=== PATIENT | female | born 1940 | race Caucasian/White ===

== ENCOUNTER 2016-09-09 17:30 | Observation (INO) ==
[2016-09-09] MEDS ORDERED: *HR* OxyCODONE/APAP 5/325 TABLET PO STA (19:19)
--- NOTE | 2016-09-09 19:22 | Emergency Department Note ---
Disposition Clinical Impression: Compression fx, thoracic spine Qualifiers: Encounter type: initial encounter Fracture type: closed Qualified Code(s): S22.000A - Wedge compression fracture of unspecified thoracic vertebra, initial encounter for closed fracture Disposition: Admitted As Inpatient Condition: Good Back Pain HPI - General Chief Complaint: ED Weakness Stated Complaint: back pain, weakness Time Seen by Provider: 09/09/16 19:03 Source: family Mode of arrival: ambulatory Limitations: no limitations Nursing Notes Reviewed: Yes Vital Signs Reviewed: Yes - History of Present Illness HPI Narrative: Patient here for evaluation of back pain and weakness status post fall on Tuesday. Patient was recently admitted for COPD exacerbation. Patient fell secondary to her losing her balance but states she did not hit her head and she did not pass out. Patient states she falls a lot but is unsure why. She states that she fell onto her back and has been having constant back pain that has not gotten any better since the incident. This is decreased her mobility and not allowed her to take care of herself as she normally would. Patient does have significant pain to the mid and upper thoracic region. Patient states that she feels generally weak and has fatigue. She does not have saddle anesthesia, paresthesias, urinary incontinence. Patient also has some tenderness to the lateral rib cage. Due to the patient being uncomfortable having generalized tenderness with a high likelihood of possible thoracic spine injury, a oakes CT scan will be performed. - Related Data Home Medications Medication Instructions Recorded Confirmed Aspirin 81 mg PO DAILY 08/24/16 08/24/16 Atorvastatin [Lipitor] 40 mg PO HS 08/24/16 08/24/16 Budesonide/Formoterol 160/4.5 2 puff IH BIDR 08/24/16 08/24/16 [Symbicort 160/4.5] Cholecalciferol (Vitamin D3) 1,000 unit PO DAILY 08/24/16 08/24/16 [Vitamin D] Doxepin HCl 10 mg PO HS PRN 08/24/16 08/24/16 Ferrous Sulfate [Iron] 325 mg PO DAILY 08/24/16 08/24/16 Fluticasone Propionate Nasal 1 - 2 spray NS DAILY 08/24/16 08/24/16 [Flonase] Glimepiride [Amaryl] 4 mg PO BID 08/24/16 08/24/16 Loratadine [Claritin] 10 mg PO DAILY 08/24/16 08/24/16 Losartan/HCTZ [Hyzaar 50-12.5 1 each PO DAILY 08/24/16 08/24/16 Tablet] Metformin HCl [Metformin HCl ER] 500 mg PO BID 08/24/16 08/24/16 Oxybutynin [Ditropan] 5 mg PO BID 08/24/16 08/24/16 Pantoprazole Sodium [Protonix] 40 mg PO BID 08/24/16 08/24/16 Sennosides [Senna] 8.6 - 17.2 mg PO HS PRN 08/24/16 08/24/16 Bimatoprost [Lumigan] 1 drop OP DAILY 09/09/16 09/09/16 Multivitamin [Multi-Day Vitamins] 1 each PO DAILY 09/09/16 09/09/16 Allergies Allergy/AdvReac Type Severity Reaction Status Date / Time clopidogrel [From Plavix] Allergy Rash Verified 09/09/16 17:43 codeine Allergy Rash Verified 09/09/16 17:43 metoclopramide [From Reglan] Allergy Rash Verified 09/09/16 17:43 Sulfa (Sulfonamide Allergy Rash Verified 09/09/16 17:43 Antibiotics) acetaminophen [From [place]] AdvReac Confusion Verified 09/09/16 17:43 hydrocodone [From [place]] AdvReac Confusion Verified 09/09/16 17:43 lisinopril AdvReac Cough Verified 09/09/16 17:43 IVP DYE Allergy Rash Uncoded 08/24/16 12:42 Review of Systems: CONSTITUTIONAL: Weakness and fatigue No weight loss, fever, chills. HEENT: Eyes: No visual changes. Ears, Nose, Throat: No hearing loss, difficulty talking or unable to swallow. SKIN: No rash or itching. CARDIOVASCULAR: No chest pain, chest pressure or chest discomfort. No palpitations or edema. RESPIRATORY: No shortness of breath, cough or sputum. GASTROINTESTINAL: No anorexia, nausea, vomiting or diarrhea. No abdominal pain or blood. GENITOURINARY: No burning on urination or hematuria. NEUROLOGICAL: No headache, dizziness, syncope, paralysis, ataxia, numbness or tingling in the extremities. No change in bowel or bladder control. MUSCULOSKELETAL: Back pain Past Medical History - Past Medical History Medical history: Reports: COPD, diabetes, GERD, hyperlipidemia, hypertension Surgical history: Reports: cholecystectomy Psychiatric history: Reports: no psych history - Social History Smoking Status: Never smoker Drug use: Reports: none Physical Exam General appearance: NAD, conversant Eyes: anicteric sclerae, moist conjunctivae; PERRL HENT: Atraumatic; oropharynx clear with moist mucous membranes and no mucosal ulcerations Neck: Normal inspection; Trachea midline; FROM, supple Lungs: CTA, with normal respiratory effort and no intercostal retractions CV: RRR, no MRGs Abdomen: Soft, non-tender; no rebound or gaurding Extremities: No peripheral edema or extremity lymphadenopathy Skin: Normal temperature; no rash, ulcers or lesions Psych: Appropriate mood and affect Neuro: alert and oriented to person, place and time . Musculoskeletal: Tenderness throughout the spine but worse in the lower and mid thoracic region. Patient complains of generalized weakness including weakness of her legs with mildly decreased strength in the lower extremity but still provides 4+/5 resistence. No saddle anesthesia. - General General appearance: alert, in no apparent distress Course - Reevaluation(s) Reevaluation #1: Discomfort the workup and x-ray findings the patient. Patient feels if she would be unable to take care of herself secondary to the pain and decreased mobility. Will discuss with orthopedic spine in regards to further management. Pt with a urine will be cultured prior to treatment. - Consultations Consultation #1: Discussed with Dr. Alonso. If patient is unable to care for herself at home he recommends admission to the hospitalist service where she can be further evaluated with an MRI of the thoracic spine and he can be consult in regards to fracture management. Consultation #2: Discussed with Dr. Aguila. Patient accepted for admission. Vital Signs Temperature 97.7 F 09/09/16 17:40 Pulse Rate 90 09/09/16 17:40 Respiratory Rate 16 09/09/16 17:40 Blood Pressure 138/82 09/09/16 17:40 O2 Sat by Pulse Oximetry 98 09/09/16 17:40 Temperature 97.7 F 09/09/16 17:40 Pulse Rate 80 09/09/16 22:00 Respiratory Rate 18 09/09/16 22:00 Blood Pressure 155/77 09/09/16 22:00 O2 Sat by Pulse Oximetry 97 09/09/16 22:00 Oxygen Delivery Oxygen Delivery Room Air Back Pain/Injury - Lab Data Result diagrams: 09/09/16 20:08 09/09/16 20:08 Lab Results 09/09/16 09/09/16 09/09/16 Range/Units 19:47 19:57 20:08 WBC 14.1 H (4.3-11.1) K/mcL RBC 5.32 H (3.82-4.97) M/mcL Hgb 16.8 H (11.5-15.4) g/dL Hct 48.7 H (35.3-44.9) % MCV 91.5 (83.0-100.0) fL MCH 31.6 (28.0-33.3) pg MCHC 34.5 (31.6-35.5) g/dL RDW 12.3 (11.5-14.5) % Plt Count 335 (140-400) K/mcL MPV 9.3 L (9.4-12.4) fL Immature Gran % 1.6 (0-4) % Seg Neutrophils % 60.0 % Lymphocytes % 30.8 % Monocytes % 6.5 % Eosinophils % 0.6 % Basophils % 0.5 % Neutrophils # 8.5 (1.6-8.9) K/mcL Lymphocytes # 4.3 (0.6-4.6) K/mcL Monocytes # 0.9 (0.0-1.3) K/mcL Eosinophils # 0.1 (0.0-0.6) K/mcL Basophils # 0.1 (0.0-0.2) K/mcL Immature Plt Fraction 3.4 (1.1-6.1) % Sodium (136-145) mEq/L Potassium (3.5-4.5) mEq/L Chloride (98-109) mEq/L Carbon Dioxide (19-29) mEq/L BUN (7-20) mg/dL Creatinine (0.57-1.11) mg/dL Est GFR ( Amer) (> 60) Est GFR (Non-Af Amer) (> 60) BUN/Creatinine Ratio (6-26) Glucose (70-99) mg/dL POC Glucose 227 H (58-89) Calculated Osmolality (280-300) Calcium (8.6-10.8) mg/dL Total Bilirubin (0.2-1.2) mg/dL AST (5-34) Units/L ALT (0-55) Units/L Alkaline Phosphatase (38-126) Units/L Troponin I (0-0.03) ng/mL Serum Total Protein (6.0-8.3) g/dL Albumin (3.5-5.0) g/dL Globulin (2.4-3.5) g/dL Albumin/Globulin Ratio (1.1-2.2) Urine Color Dark Yellow (Yellow) Urine Clarity Cloudy A (Clear) Urine pH 6.0 (5.0-8.0) pH Units Ur Specific [place] > 1.030 H (1.010-1.025) Urine Protein 100 H (Neg-Trace) mg/dL Urine Glucose (UA) >=1000 H (Normal) mg/dL Urine Ketones Trace H (Negative) mg/dL Urine Blood Negative (Negative) Urine Nitrite Negative (Negative) Urine Bilirubin Small H (Negative) Urine Urobilinogen Normal (Normal) mg/dL Ur Leukocyte Esterase Negative (Negative) Urine Microscopic RBC 3-5 H (0-3) per hpf Urine Microscopic WBC 5-15 H (0-3) per hpf Ur Squamous Epith Cells Many H (None-Few) per lpf Urine Bacteria Few (None-Few) per hpf Hyaline Casts None Seen (None-Few) per lpf Urine Yeast Test Not Performed Ur Culture Indicated? YES A (NO) 09/09/16 09/09/16 Range/Units 20:08 20:08 WBC (4.3-11.1) K/mcL RBC (3.82-4.97) M/mcL Hgb (11.5-15.4) g/dL Hct (35.3-44.9) % MCV (83.0-100.0) fL MCH (28.0-33.3) pg MCHC (31.6-35.5) g/dL RDW (11.5-14.5) % Plt Count (140-400) K/mcL MPV (9.4-12.4) fL Immature Gran % (0-4) % Seg Neutrophils % % Lymphocytes % % Monocytes % % Eosinophils % % Basophils % % Neutrophils # (1.6-8.9) K/mcL Lymphocytes # (0.6-4.6) K/mcL Monocytes # (0.0-1.3) K/mcL Eosinophils # (0.0-0.6) K/mcL Basophils # (0.0-0.2) K/mcL Immature Plt Fraction (1.1-6.1) % Sodium 131 L (136-145) mEq/L Potassium 4.1 (3.5-4.5) mEq/L Chloride 93 L (98-109) mEq/L Carbon Dioxide 24 (19-29) mEq/L BUN 24 H (7-20) mg/dL Creatinine 0.83 (0.57-1.11) mg/dL Est GFR ( Amer) > 60 (> 60) Est GFR (Non-Af Amer) > 60 (> 60) BUN/Creatinine Ratio 29 H (6-26) Glucose 228 H (70-99) mg/dL POC Glucose (58-89) Calculated Osmolality 283 (280-300) Calcium 10.4 (8.6-10.8) mg/dL Total Bilirubin 1.8 H (0.2-1.2) mg/dL AST 30 (5-34) Units/L ALT 65 H (0-55) Units/L Alkaline Phosphatase 104 (38-126) Units/L Troponin I 0.03 (0-0.03) ng/mL Serum Total Protein 8.9 H (6.0-8.3) g/dL Albumin 3.8 (3.5-5.0) g/dL Globulin 5.1 H (2.4-3.5) g/dL Albumin/Globulin Ratio 0.7 L (1.1-2.2) Urine Color (Yellow) Urine Clarity (Clear) Urine pH (5.0-8.0) pH Units Ur Specific [place] (1.010-1.025) Urine Protein (Neg-Trace) mg/dL Urine Glucose (UA) (Normal) mg/dL Urine Ketones (Negative) mg/dL Urine Blood (Negative) Urine Nitrite (Negative) Urine Bilirubin (Negative) Urine Urobilinogen (Normal) mg/dL Ur Leukocyte Esterase (Negative) Urine Microscopic RBC (0-3) per hpf Urine Microscopic WBC (0-3) per hpf Ur Squamous Epith Cells (None-Few) per lpf Urine Bacteria (None-Few) per hpf Hyaline Casts (None-Few) per lpf Urine Yeast Ur Culture Indicated? (NO)
[2016-09-09 20:08] LABS: Bilirubin,Urine Small (Negative); Blood,Urine Negative (Negative); Clarity,Urine Cloudy (Clear); Color,Urine Dark Yellow (Yellow); Glucose,Urine (UA) >=1000 mg/dL (Normal); Ketones,Urine Trace mg/dL (Negative); Leukocyte Esterase,Urine Negative (Negative); Nitrite,Urine Negative (Negative); Protein,Urine 100 mg/dL (Neg-Trace); Specific Gravity,Urine > 1.030 (1.010-1.025); Urobilinogen,Urine Normal (Normal)
[2016-09-09 20:12] LABS: Bacteria,Urine Few per hpf (None-Few); Hyaline Casts,Urine None Seen per lpf (None-Few); Squamous Epithelial Cell,Urine Many per lpf (None-Few)
[2016-09-09] MEDS ORDERED: Ipratropium/Albuterol Neb 3 ML IH ONE (20:18)
[2016-09-09 20:27] LABS: Basophils # 0.1 K/mcL (0.0-0.2); Basophils % 0.5 %; Eosinophils # 0.1 K/mcL (0.0-0.6); Eosinophils % 0.6 %; Hematocrit 48.7 % (35.3-44.9); Hemoglobin 16.8 g/dL (11.5-15.4); Immature Granulocytes % 1.6 % (0-4); Immature Platelets 3.4 % (1.1-6.1); Lymphocytes # 4.3 K/mcL (0.6-4.6); Lymphocytes % 30.8 %; Mean Corpuscular HGB Conc 34.5 g/dL (31.6-35.5); Mean Corpuscular Hemoglobin 31.6 pg (28.0-33.3); Mean Corpuscular Volume 91.5 fL (83.0-100.0); Mean Platelet Volume 9.3 fL (9.4-12.4); Monocytes # 0.9 K/mcL (0.0-1.3); Monocytes % 6.5 %; Neutrophils # 8.5 K/mcL (1.6-8.9); Platelet Count 335 K/mcL (140-400); Red Blood Count 5.32 M/mcL (3.82-4.97); Red Cell Distribution Width 12.3 % (11.5-14.5)
[2016-09-09 20:41] LABS: Alanine Aminotransferase 65 Units/L (0-55); Albumin 3.8 g/dL (3.5-5.0); Albumin/Globulin Ratio 0.7 (1.1-2.2); Alkaline Phosphatase 104 Units/L (38-126); Aspartate Amino Transferase 30 Units/L (5-34); BUN/Creatinine Ratio 29 (6-26); Bilirubin,Total 1.8 mg/dL (0.2-1.2); Blood Urea Nitrogen 24 mg/dL (7-20); Calcium 10.4 mg/dL (8.6-10.8); Carbon Dioxide 24 mEq/L (19-29); Chloride 93 mEq/L (98-109); Globulin 5.1 g/dL (2.4-3.5); Glucose 228 mg/dL (70-99); Osmolality,Calculated 283 (280-300); Potassium 4.1 mEq/L (3.5-4.5); Total Protein 8.9 g/dL (6.0-8.3); eGFR For African Americans > 60 (> 60); eGFR For Non-African Americans > 60 (> 60)
[2016-09-09 20:42] LABS: Sodium 131 mEq/L (136-145)
--- NOTE | 2016-09-09 22:17 | Emergency Department Note ---
Disposition Clinical Impression: Compression fx, thoracic spine Qualifiers: Encounter type: initial encounter Fracture type: closed Qualified Code(s): S22.000A - Wedge compression fracture of unspecified thoracic vertebra, initial encounter for closed fracture Disposition: Admitted As Inpatient Condition: Good Back Pain HPI - General Chief Complaint: ED Weakness Stated Complaint: back pain, weakness Time Seen by Provider: 09/09/16 19:03 Source: family Limitations: no limitations - Related Data Home Medications Medication Instructions Recorded Confirmed RX: Aspirin 81 mg PO DAILY 08/24/16 09/09/16 RX: Atorvastatin [Lipitor] 40 mg PO HS 08/24/16 09/09/16 RX: Budesonide/Formoterol 160/4.5 2 puff IH BIDR 08/24/16 09/09/16 [Symbicort 160/4.5] RX: Cholecalciferol (Vitamin D3) 1,000 unit PO DAILY 08/24/16 09/09/16 [Vitamin D3] RX: Doxepin HCl 10 mg PO HS PRN 08/24/16 09/09/16 RX: Ferrous Sulfate [Iron] 325 mg PO DAILY 08/24/16 09/09/16 RX: Fluticasone Propionate Nasal 1 - 2 spray NS DAILY PRN 08/24/16 09/09/16 [Flonase] RX: Glimepiride [Amaryl] 4 mg PO BID 08/24/16 09/09/16 RX: Loratadine [Claritin] 10 mg PO DAILY 08/24/16 09/09/16 RX: Losartan/HCTZ [Hyzaar 50-12.5 1 each PO DAILY 08/24/16 09/09/16 Tablet] RX: Metformin HCl [Metformin HCl 500 mg PO BID 08/24/16 09/09/16 ER] RX: Oxybutynin [Ditropan] 5 mg PO BID 08/24/16 09/09/16 RX: Pantoprazole Sodium [Protonix] 40 mg PO DAILY 08/24/16 09/09/16 RX: Sennosides [Senna] 8.6 - 17.2 mg PO HS PRN 08/24/16 09/09/16 RX: Bimatoprost [Lumigan] 1 drop OP DAILY 09/09/16 09/09/16 RX: Multivitamin [Multi-Day 1 each PO DAILY 09/09/16 09/09/16 Vitamins] Previous Rx's Medication Instructions Recorded RX: OxyCODONE/APAP 5/325 [Percocet 1 each PO Q6HR PRN #30 tablet 09/10/16 5/325 MG] Allergies Allergy/AdvReac Type Severity Reaction Status Date / Time clopidogrel [From Plavix] Allergy Rash Verified 09/09/16 17:43 codeine Allergy Rash Verified 09/09/16 17:43 metoclopramide [From Reglan] Allergy Rash Verified 09/09/16 17:43 Sulfa (Sulfonamide Allergy Rash Verified 09/09/16 17:43 Antibiotics) acetaminophen [From [place]] AdvReac Confusion Verified 09/09/16 17:43 hydrocodone [From [place]] AdvReac Confusion Verified 09/09/16 17:43 lisinopril AdvReac Cough Verified 09/09/16 17:43 IVP DYE Allergy Rash Uncoded 08/24/16 12:42 Past Medical History - Past Medical History Medical history: Reports: COPD, diabetes, GERD, hyperlipidemia, hypertension Surgical history: Reports: cholecystectomy Psychiatric history: Reports: no psych history - Social History Smoking Status: Never smoker Drug use: Reports: none Physical Exam - General Limitations: no limitations General appearance: alert, in no apparent distress Course Vital Signs Temperature 97.7 F 09/09/16 17:40 Pulse Rate 90 09/09/16 17:40 Respiratory Rate 16 09/09/16 17:40 Blood Pressure 138/82 09/09/16 17:40 O2 Sat by Pulse Oximetry 98 09/09/16 17:40 Temperature 97.8 F 09/10/16 11:51 Pulse Rate 64 09/10/16 11:51 Respiratory Rate 14 09/10/16 11:51 Blood Pressure 145/75 09/10/16 11:51 O2 Sat by Pulse Oximetry 97 09/10/16 11:51 Oxygen Delivery Oxygen Delivery Room Air Back Pain/Injury - Medical Records Medical records reviewed: Yes I reviewed the patient's medical records. - Lab Data Lab results reviewed: Yes I reviewed the patient's lab results. Result diagrams: 09/10/16 04:18 09/10/16 04:18 Lab Results 09/09/16 09/09/16 09/09/16 Range/Units 19:47 19:57 20:08 WBC 14.1 H (4.3-11.1) K/mcL RBC 5.32 H (3.82-4.97) M/mcL Hgb 16.8 H (11.5-15.4) g/dL Hct 48.7 H (35.3-44.9) % MCV 91.5 (83.0-100.0) fL MCH 31.6 (28.0-33.3) pg MCHC 34.5 (31.6-35.5) g/dL RDW 12.3 (11.5-14.5) % Plt Count 335 (140-400) K/mcL MPV 9.3 L (9.4-12.4) fL Immature Gran % 1.6 (0-4) % Seg Neutrophils % 60.0 % Lymphocytes % 30.8 % Monocytes % 6.5 % Eosinophils % 0.6 % Basophils % 0.5 % Neutrophils # 8.5 (1.6-8.9) K/mcL Lymphocytes # 4.3 (0.6-4.6) K/mcL Monocytes # 0.9 (0.0-1.3) K/mcL Eosinophils # 0.1 (0.0-0.6) K/mcL Basophils # 0.1 (0.0-0.2) K/mcL Immature Plt Fraction 3.4 (1.1-6.1) % Sodium (136-145) mEq/L Potassium (3.5-4.5) mEq/L Chloride (98-109) mEq/L Carbon Dioxide (19-29) mEq/L BUN (7-20) mg/dL Creatinine (0.57-1.11) mg/dL Est GFR ( Amer) (> 60) Est GFR (Non-Af Amer) (> 60) BUN/Creatinine Ratio (6-26) Glucose (70-99) mg/dL POC Glucose 227 H (58-89) Est Mean Plasma Glucose mg/dl Hemoglobin A1c ( - 5.6) % Calculated Osmolality (280-300) Calcium (8.6-10.8) mg/dL Total Bilirubin (0.2-1.2) mg/dL AST (5-34) Units/L ALT (0-55) Units/L Alkaline Phosphatase (38-126) Units/L Troponin I (0-0.03) ng/mL Serum Total Protein (6.0-8.3) g/dL Albumin (3.5-5.0) g/dL Globulin (2.4-3.5) g/dL Albumin/Globulin Ratio (1.1-2.2) Urine Color Dark Yellow (Yellow) Urine Clarity Cloudy A (Clear) Urine pH 6.0 (5.0-8.0) pH Units Ur Specific [place] > 1.030 H (1.010-1.025) Urine Protein 100 H (Neg-Trace) mg/dL Urine Glucose (UA) >=1000 H (Normal) mg/dL Urine Ketones Trace H (Negative) mg/dL Urine Blood Negative (Negative) Urine Nitrite Negative (Negative) Urine Bilirubin Small H (Negative) Urine Urobilinogen Normal (Normal) mg/dL Ur Leukocyte Esterase Negative (Negative) Urine Microscopic RBC 3-5 H (0-3) per hpf Urine Microscopic WBC 5-15 H (0-3) per hpf Ur Squamous Epith Cells Many H (None-Few) per lpf Urine Bacteria Few (None-Few) per hpf Hyaline Casts None Seen (None-Few) per lpf Urine Yeast Test Not Performed Ur Culture Indicated? YES A (NO) 09/09/16 09/09/16 09/09/16 Range/Units 20:08 20:08 20:08 WBC (4.3-11.1) K/mcL RBC (3.82-4.97) M/mcL Hgb (11.5-15.4) g/dL Hct (35.3-44.9) % MCV (83.0-100.0) fL MCH (28.0-33.3) pg MCHC (31.6-35.5) g/dL RDW (11.5-14.5) % Plt Count (140-400) K/mcL MPV (9.4-12.4) fL Immature Gran % (0-4) % Seg Neutrophils % % Lymphocytes % % Monocytes % % Eosinophils % % Basophils % % Neutrophils # (1.6-8.9) K/mcL Lymphocytes # (0.6-4.6) K/mcL Monocytes # (0.0-1.3) K/mcL Eosinophils # (0.0-0.6) K/mcL Basophils # (0.0-0.2) K/mcL Immature Plt Fraction (1.1-6.1) % Sodium 131 L (136-145) mEq/L Potassium 4.1 (3.5-4.5) mEq/L Chloride 93 L (98-109) mEq/L Carbon Dioxide 24 (19-29) mEq/L BUN 24 H (7-20) mg/dL Creatinine 0.83 (0.57-1.11) mg/dL Est GFR ( Amer) > 60 (> 60) Est GFR (Non-Af Amer) > 60 (> 60) BUN/Creatinine Ratio 29 H (6-26) Glucose 228 H (70-99) mg/dL POC Glucose (58-89) Est Mean Plasma Glucose 266 mg/dl Hemoglobin A1c 10.9 H ( - 5.6) % Calculated Osmolality 283 (280-300) Calcium 10.4 (8.6-10.8) mg/dL Total Bilirubin 1.8 H (0.2-1.2) mg/dL AST 30 (5-34) Units/L ALT 65 H (0-55) Units/L Alkaline Phosphatase 104 (38-126) Units/L Troponin I 0.03 (0-0.03) ng/mL Serum Total Protein 8.9 H (6.0-8.3) g/dL Albumin 3.8 (3.5-5.0) g/dL Globulin 5.1 H (2.4-3.5) g/dL Albumin/Globulin Ratio 0.7 L (1.1-2.2) Urine Color (Yellow) Urine Clarity (Clear) Urine pH (5.0-8.0) pH Units Ur Specific [place] (1.010-1.025) Urine Protein (Neg-Trace) mg/dL Urine Glucose (UA) (Normal) mg/dL Urine Ketones (Negative) mg/dL Urine Blood (Negative) Urine Nitrite (Negative) Urine Bilirubin (Negative) Urine Urobilinogen (Normal) mg/dL Ur Leukocyte Esterase (Negative) Urine Microscopic RBC (0-3) per hpf Urine Microscopic WBC (0-3) per hpf Ur Squamous Epith Cells (None-Few) per lpf Urine Bacteria (None-Few) per hpf Hyaline Casts (None-Few) per lpf Urine Yeast Ur Culture Indicated? (NO) Attestation Statement - Attestation Attestation: I examined this patient and my medical decision-making was reviewed with the GETTERING OPERATOR/PA/Advanced Practice Nurse/Resident Physician. I agree with the documented findings, disposition and treatment plan as described except to the extent set forth below. In summary 76-year-old female patient who presents after fall. She was found to have compression fractures. We did discuss the case with neurosurgery who recommends admission and would be willing to consult on this patient. She has no neurological deficits at this time. She does have some weakness systemically. Pain scan was obtained and shows only isolated endplate fractures.
--- NOTE | 2016-09-09 22:37 | Internal Med History&Physical ---
<Dimitri Feliciano - Last Filed: 09/10/16 02:50> Date of Encounter: 09/09/16 Time of Encounter: 22:33 Assessment and Plan (1) Fall Current visit: Yes Status: Acute Patient falling at home. Resulting in T12 fracture. Patient feels that she is unable to ambulate and move about her house with her back pain. Qualifiers: Encounter type: initial encounter Qualified Code(s): W19.XXXA - Unspecified fall, initial encounter (2) T12 compression fracture Current visit: Yes Status: Acute CT of the thoracic spine demonstrates acute mild compression deformity of the T12 vertebral body superior endplate. No retropulsion of posterior element involvement. Mild age indeterminate depression of the T2, T3, T4 superior endplates. No acute lumbar spine abnormalities were appreciated. - Patient admitted to general medical floor - Continue pain control - Consult placed to Dr. Alonso for evaluation the morning. - Patient in MRI, results pending. Qualifiers: Encounter type: initial encounter Qualified Code(s): S22.080A - Wedge compression fracture of T11-T12 vertebra, initial encounter for closed fracture (3) Leukocytosis (leucocytosis) Current visit: Yes Status: Acute Elevated WBC at 14. Likely reactive to fall and compression fracture. Low suspicion for urinary tract infection patient does have 5-15 microscopic WBCs, proteinuria and hyperglycemia with spillage of glucose and the urine ketones. - We will continue to monitor with a.m. laboratory results. Qualifiers: Leukocytosis type: leukemoid reaction Qualified Code(s): D72.823 - Leukemoid reaction (4) Polycythemia Current visit: Yes Status: Acute Hemoglobin 16.8 hematocrit 48.7, MCV 91.5. Review of patient's previous lab results from October 2015 and March 2016 demonstrates a slow trend up in the hemoglobin from 13.6-14.9. Patient does have a history of COPD but does not require home oxygen an current O2 levels do not coordinate with hypoxia. No recent blood gases available. - This may be due to some dehydration, renal function appears stable with no significant changes in creatinine or GFR. However the patient is hyperglycemic with spillage of protein and glucose and to her urine. Plan: - We will monitor with a.m. labs. (5) Type II diabetes mellitus Current visit: Yes Status: Acute Known type II diabetic, presented with hyperglycemia with glucoses in 200s. Glucosuria present with proteinuria at 100. Plan: - NPO at night - ACHS glucose checks - Low-dose sliding scale insulin, increase as necessary. 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 Plan: - We will continue home antihypertensive regimen. Qualifiers: Hypertension type: essential hypertension Qualified Code(s): I10 - Essential (primary) hypertension (7) COPD (chronic obstructive pulmonary disease) Current visit: Yes Status: Acute Known history of COPD, currently stable. - Continue Symbicort - Albuterol inhaler - We will have DuoNeb's and albuterol nebulizer when necessary Qualifiers: COPD type: unspecified COPD Qualified Code(s): J44.9 - Chronic obstructive pulmonary disease, unspecified (8) CAD (coronary artery disease) Current visit: Yes Status: Acute Known history of coronary artery disease, continue to optimize cardiac medications including aspirin, statin. Qualifiers: Associated angina: without angina Qualified Code(s): I25.10 - Atherosclerotic heart disease of [place] coronary artery without angina pectoris (9) DVT prophylaxis Current visit: Yes Status: Acute Lovenox 40 mg every morning Internal Medicine - H&P: HPI Chief complaint: fall Admitted From: Home History of present illness: Ms. Johnson is a 76 year old female with past history of COPD, type 2 diabetes , GERD, hyperlipidemia, hypertension presented to [facility] with mid back pain. Patient states that for the past several weeks she has felt that she could not really feel what was under her legs. On Tuesday she was walking out of the bathroom and fell backwards landing on her back. Upon hitting the floor she said she had significant pain in her mid back and at its worst scored a 9 out of 10. She could not find any relief with position the pain stayed in her mid back did not radiates down to her legs or up to her shoulders. The pain is exacerbated with activity or sitting up. She denies any numbness in her thighs or loss of bowel or bladder function. She denies any weakness in her lower extremities or upper extremities. She denies any new neurologic findings. Patient denies any fevers, chills, sweating, diaphoresis, nausea vomiting diarrhea constipation chest pain or palpitations. She found that the only relief she has had it since she received pain medications the emergency department. She denies any preceding symptoms of stars, blacking out lightheadedness dizziness. Before this fall she denies using any assistive devices. She said that she simply lost her balance. Past Med Surg Social Fam HX - Past Medical History Medical history: COPD, diabetes, GERD, hyperlipidemia, hypertension Psychiatric history: no psych history - Past Surgical History Surgical History: cholecystectomy - Social History Smoking Status: Never smoker Drug use: none - Family History Mother History Unknown: Yes Adopted: [place]: Carina Morel Age: 89 Family Member Ethnicity: Non- Living Status: Age at : 89 Hx Family Cardiac Disorders: No Hx Family Respiratory Disorders: Yes (asthma) Hx Family Cancer: No Hx Family GI Disorders: No Hx Family Genitourinary Disorders: No Hx Family Endocrine Disorder: No Hx Family Musculoskeletal Disorders: No Hx Family Neuromuscular Disorders: No Hx Family Neurologic Disorders: No Hx Family HEENT Disorders: No Hx Family Autoimmune Disorders: No Hx Family Reproductive Disorders: No Hx Family Psychosocial Disorders: No Hx Family Medical Disorders: No Father Living Status: Hx Family Cancer: Yes (Lung cancer) Internal Medicine - H&P: Meds Aspirin 81 mg PO DAILY 08/24/16 [History] Atorvastatin [Lipitor] 40 mg PO HS 08/24/16 [History] Budesonide/Formoterol 160/4.5 [Symbicort 160/4.5] 2 puff IH BIDR 08/24/16 [ History] Cholecalciferol (Vitamin D3) [Vitamin D] 1,000 unit PO DAILY 08/24/16 [History] Doxepin HCl 10 mg PO HS PRN 08/24/16 [History] Ferrous Sulfate [Iron] 325 mg PO DAILY 08/24/16 [History] Fluticasone Propionate Nasal [Flonase] 1 - 2 spray NS DAILY PRN 08/24/16 [ History] Glimepiride [Amaryl] 4 mg PO BID 08/24/16 [History] Loratadine [Claritin] 10 mg PO DAILY 08/24/16 [History] Losartan/HCTZ [Hyzaar 50-12.5 Tablet] 1 each PO DAILY 08/24/16 [History] Metformin HCl [Metformin HCl ER] 500 mg PO BID 08/24/16 [History] Oxybutynin [Ditropan] 5 mg PO BID 08/24/16 [History] Pantoprazole Sodium [Protonix] 40 mg PO DAILY 08/24/16 [History] Sennosides [Senna] 8.6 - 17.2 mg PO HS PRN 08/24/16 [History] Bimatoprost [Lumigan] 1 drop OP DAILY 09/09/16 [History] Multivitamin [Multi-Day Vitamins] 1 each PO DAILY 09/09/16 [History] Allergies clopidogrel [From Plavix] Allergy (Verified 09/09/16 17:43) Rash codeine Allergy (Verified 09/09/16 17:43) Rash metoclopramide [From Reglan] Allergy (Verified 09/09/16 17:43) Rash Sulfa (Sulfonamide Antibiotics) Allergy (Verified 09/09/16 17:43) Rash acetaminophen [From [place]] Adverse Reaction (Verified 09/09/16 17:43) Confusion hydrocodone [From [place]] Adverse Reaction (Verified 09/09/16 17:43) Confusion lisinopril Adverse Reaction (Verified 09/09/16 17:43) Cough IVP DYE Allergy (Uncoded 08/24/16 12:42) Rash All Systems PM: A 10-system review of systems was performed and is negative for pertinent findings except as documented above in the HPI. - Constitutional Constitutional: no chills, no fever(s), no night sweats - EENT Eyes: no change in vision, no discharge, no pain, no photophobia Ears: no ear discharge, no ear pain, no tinnitus Nose, mouth and throat: no dysphagia, no nasal discharge, no neck pain, no sore throat - Cardiovascular Cardiovascular ROS IM: no chest pain, no diaphoresis, no dyspnea, no lightheadedness, no palpitations, no syncope - Respiratory Respiratory: no cough, no dyspnea, no wheezing, no excessive phlegm production - Gastrointestinal Gastrointestinal: no abdominal pain, no diarrhea, no hematemesis, no hematochezia, no melena, no nausea, no vomiting - Genitourinary Genitourinary: no change in urinary stream, no dysuria, no flank pain, no hematuria - Musculoskeletal Musculoskeletal ROS IM: no numbness, no tingling - Integumentary Integumentary IM: no rash, no unusual bruising - Neurological Neurological ROS: numbness, weakness (Positive for mid back pain.), no confusion , no convulsions, no focal weakness, no tingling, no tremor(s) - Hematologic/Lymphatic Hematologic/Lymphatic: no easy bruising - Constitutional Vitals: Temp Pulse Resp BP Pulse Ox 97.7 F 80 18 155/77 97 09/09/16 17:40 09/09/16 22:00 09/09/16 22:00 09/09/16 22:00 09/09/16 22:00 General appearance: Present: A&O X 3 Exam: General: Patient alert, awake, oriented 3, interactive, in no acute distress HEENT: Normocephalic, atraumatic, pupils equal reactive to light, nasal cavity patent and open septum median position, oral mucosa moist, uvula midline, neck supple trachea midline no palpable lymphadenopathy, no thyromegaly. Chest: Symmetric bilateral correlating with respiratory effort, effort nonlabored. Cardiac: Regular rate and rhythm, positive S1 and S2. no bruits appreciated bilateral carotids, Radial pulses 2+ bilateral, posterior tibial and dorsal pedal pulses 2+ bilateral. Respiratory: Clear to auscultation all lung araya Abdomen: Soft, nontender, positive bowel sounds, no palpable masses appreciated on examination Extremities: Symmetric bilateral, bilateral lower extremities without erythema or edema patient moving all 4 extremities spontaneously. Neurologic: No focal deficits appreciated on examination. Face symmetric, muscle strength symmetric bilateral upper and lower extremities. - Tenderness to palpation of the thoracic spine around T11-T12. Patient exhibited pain expression when rotating in bed. Internal Med - H&P Results - Labs CBC & Chem 7: 09/09/16 20:08 09/09/16 20:08 <Bart Aguila - Last Filed: 09/10/16 04:49> Date of Encounter: 09/09/16 Internal Medicine - H&P: HPI History of present illness: Ms. Johnson is a 76 year old female All Systems PM: A 10-system review of systems was performed and is negative for pertinent findings except as documented above in the HPI. - Constitutional Vitals: Temp Pulse Resp BP Pulse Ox 98.5 F 69 17 126/71 92 09/10/16 04:08 09/10/16 04:08 09/10/16 04:08 09/10/16 04:08 09/10/16 04:08 Internal Med - H&P Results - Labs CBC & Chem 7: 09/09/16 20:08 09/09/16 20:08 - Diagnostic Studies CT scan - chest Status: image reviewed by me CT scan - head Status: image reviewed by me - Attending Attestation I personally interviewed and examined this patient and my medical decision- making was reviewed with the Resident Physician. I agree with the documented findings, disposition and treatment plan as described. Bart Aguila MD, MPH Hospitalist
[2016-09-09] MEDS ORDERED: Ondansetron ODT 4 MG TAB.RAPDIS SL PRN (23:03)
[2016-09-09] MEDS ORDERED: Naloxone 0.4 MG/ML INJ IVP PRN (23:03)
[2016-09-09] MEDS ORDERED: D5% in Water 1,000 ML IVC PRN (23:09)
[2016-09-09] MEDS ORDERED: Dextrose Gel 15 GM PO PRN ×2 (23:09)
[2016-09-09] MEDS ORDERED: *HR* Dextrose 50 % in Water (Syg) 50 ML SYRINGE IVP PRN (23:09)
[2016-09-09 23:23] LABS: Hemoglobin A1C 10.9 %
[2016-09-10] MEDS ORDERED: Fluticasone Propionate Nasal 50 MCG/SPRAY BOTTLE NS PRN (00:16)
[2016-09-10] MEDS: *HR* OxyCODONE/APAP 5/325 TABLET PO PRN ×3 (00:56→11:23)
[2016-09-10] MEDS: *HR* Morphine 2 MG/ML SYRINGE IVP PRN ×2 (03:24→08:02)
[2016-09-10 04:57] LABS: Basophils # 0.1 K/mcL (0.0-0.2); Basophils % 0.5 %; Eosinophils # 0.1 K/mcL (0.0-0.6); Eosinophils % 0.7 %; Hematocrit 40.7 % (35.3-44.9); Immature Granulocytes % 1.5 % (0-4); Lymphocytes # 3.1 K/mcL (0.6-4.6); Lymphocytes % 31.2 %; Mean Corpuscular HGB Conc 34.2 g/dL (31.6-35.5); Mean Corpuscular Volume 93.6 fL (83.0-100.0); Mean Platelet Volume 9.7 fL (9.4-12.4); Monocytes # 0.8 K/mcL (0.0-1.3); Monocytes % 7.5 %; Neutrophils # 5.8 K/mcL (1.6-8.9); Platelet Count 244 K/mcL (140-400); Red Blood Count 4.35 M/mcL (3.82-4.97); Red Cell Distribution Width 12.1 % (11.5-14.5); Segmented Neutrophils % 58.6 %
[2016-09-10 05:01] LABS: Hemoglobin 13.9 g/dL (11.5-15.4)
[2016-09-10 05:21] LABS: BUN/Creatinine Ratio 31 (6-26); Blood Urea Nitrogen 22 mg/dL (7-20); Calcium 8.9 mg/dL (8.6-10.8); Carbon Dioxide 19 mEq/L (19-29); Chloride 100 mEq/L (98-109); Glucose 265 mg/dL (70-99); Osmolality,Calculated 285 (280-300); Potassium 4.2 mEq/L (3.5-4.5); Sodium 131 mEq/L (136-145); eGFR For African Americans > 60 (> 60); eGFR For Non-African Americans > 60 (> 60)
[2016-09-10] MEDS ORDERED: *HR* Enoxaparin 40 MG/0.4 ML SYRINGE SQ SCH (06:00)
[2016-09-10] MEDS: Insulin LISPRO 300 UNITS/3 ML VIAL SQ SCH ×2 (08:28→13:19)
[2016-09-10] MEDS ORDERED: Pantoprazole 40 MG VIAL IVP SCH (09:00)
[2016-09-10] MEDS ORDERED: Loratadine 10 MG TABLET PO SCH (09:00)
[2016-09-10] MEDS ORDERED: Latanoprost 2.5 ML BOTTLE BOTH EYES SCH (09:00)
[2016-09-10] MEDS ORDERED: Losartan/HCTZ 50-12.5 TABLET PO SCH (09:00)
[2016-09-10] MEDS ORDERED: Aspirin 81 MG TAB.CHEW PO SCH (09:00)
[2016-09-10] MEDS ORDERED: Budesonide/Formoterol 160/4.5 MDI IH SCH (10:00)
--- NOTE | 2016-09-10 10:22 | Internal Med Progress Note ---
Date of Encounter: 09/10/16 Time of Encounter: 10:19 - Assessment and plan (1) Intractable back pain Current Visit: Yes Status: Acute Assessment and plan: Secondary to T12 compression fracture and history of chronic back pain Continue morphine and oxycodone as needed Orthopedic surgery consult pending Physical therapy evaluation The patient had multiple CAT scans and MRI that did not show any major abnormalities other than the newly diagnosed small T12 compression fracture and the MRI of the thoracic spine shows a 3 mm broad-based central disc protrusion at T2 11 and T12 extending 7 mm behind T11 vertebral body resulting in moderate narrowing of the thecal sac and both neural foramina. (2) T12 compression fracture Current Visit: Yes Status: Acute Qualifiers: Encounter type: initial encounter Qualified Code(s): S22.080A - Wedge compression fracture of T11-T12 vertebra, initial encounter for closed fracture (3) Polycythemia Current Visit: Yes Status: Acute Assessment and plan: Likely secondary to dehydration as the patient has returned to her normal values Hemoglobin was 16.8 upon admission now is 13.9 which is closeer to her baseline from prior measurements (4) Type II diabetes mellitus Current Visit: Yes Status: Acute Assessment and plan: Continue insulin sliding scale Qualifiers: Diabetes mellitus complication status: without complication 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 insulin use: without care home use Qualified Code(s): E11.9 - Type 2 diabetes mellitus without complications (5) HTN (hypertension) Current Visit: Yes Status: Acute Assessment and plan: Stable Qualifiers: Hypertension type: essential hypertension Qualified Code(s): I10 - Essential (primary) hypertension (6) COPD (chronic obstructive pulmonary disease) Current Visit: Yes Status: Acute Assessment and plan: No exacerbation Qualifiers: COPD type: unspecified COPD Qualified Code(s): J44.9 - Chronic obstructive pulmonary disease, unspecified (7) CAD (coronary artery disease) Current Visit: Yes Status: Acute Assessment and plan: Continue aspirin and Lipitor Qualifiers: Associated angina: without angina Qualified Code(s): I25.10 - Atherosclerotic heart disease of [place] coronary artery without angina pectoris - Subjective Interval history: The patient says that her pain is excruciating the lower back, denies any nausea vomiting no fevers, no chest pain or shortness of breath, no abdominal pain or dysuria, no incontinence but her legs are slightly weak from the pain - Constitutional Vitals: Temp Pulse Resp BP Pulse Ox 97.8 F 84 16 128/82 97 09/10/16 07:18 09/10/16 07:18 09/10/16 07:18 09/10/16 07:18 09/10/16 07:18 General appearance: Present: A&O X 3 - Head Head exam: Present: atraumatic, normocephalic - Eye Eye exam: Present: PERRL, conjuntiva pink, sclera anicteric Pupils: Present: PERRL - Neck Neck exam general surgery: Present: supple, trachea midline. Absent: lymphadenopathy - Respiratory Respiratory exam: Present: CTAB. Absent: accessory muscle use, rales, rhonchi, wheezes - Cardiovascular Cardiovascular exam: Present: RRR, +S1, +S2. Absent: diastolic murmur, gallop, rubs, systolic murmur - GI/Abdominal GI/Abdominal exam: Present: normal bowel sounds, soft, no peritoneal signs. Absent: distended, tenderness - Extremities Exam Extremities exam: Present: warm, radial pulses palpable and symetrical. Absent : calf tenderness, cyanotic, pedal edema - Neurological Exam Neurological exam: Present: CN II-XII intact, oriented X3, no focal deficits. Absent: pronater drift, facial droop, speech deficit - Skin Skin exam: Present: dry, intact Internal Medicine: Result - Labs CBC & Chem 7: 09/10/16 04:18 09/10/16 04:18 Labs: Short CBC 09/10/16 Range/Units 04:18 WBC 10.0 (4.3-11.1) K/mcL Hgb 13.9 D (11.5-15.4) g/dL Hct 40.7 (35.3-44.9) % Plt Count 244 (140-400) K/mcL Neutrophils # 5.8 (1.6-8.9) K/mcL BMP 09/10/16 04:18 Sodium 131 L Potassium 4.2 Chloride 100 Carbon Dioxide 19 BUN 22 H Creatinine 0.72 Glucose 265 H Calcium 8.9 Consult Discharge Plan - Plan Referrals: NO,PCP [Non-Partnered Physician] -
[2016-09-10 11:54] VITALS: BP 145/75
--- NOTE | 2016-09-10 12:04 | Spinal Consult Note ---
Date of Encounter: 09/10/16 Time of Encounter: 12:01 Assessment and Plan (1) T12 compression fracture Current Visit: Yes Status: Chronic On exam she appears in mild distress secondary to back pain. Afebrile vital signs stable. She fires all upper and lower extremity motor groups with good strength. She has no clonus. She has a well-healed lumbar incision. She has no focal tenderness to palpation in the thoracic or lumbar spine. CT scan of the thoracic and lumbar spines reveals multilevel lumbar instrumented fusion without apparent hardware complication. There is a T12 superior endplate fracture of unknown chronicity. 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 Her fracture is old and I would manage her recent onset of symptoms with analgesics and mobilization as tolerated. Qualifiers: Encounter type: initial encounter Fracture type: closed Qualified Code(s) : S22.080A - Wedge compression fracture of T11-T12 vertebra, initial encounter for closed fracture History of Present Illness Chief complaint: Back pain after fall HPI: Ms. Johnson is a 76 year old female Who has a history of 2 previous spine surgeries including long lumbar fusion who complains of recent onset of worsening back pain after a fall several days ago. She is brought into the emergency department and evaluated in CT scans revealed superior endplate compression fractures and secondary to her intractable pain she was admitted for pain control and management. We are asked to see regarding treatment of her fractures. She denies any bowel bladder symptoms, weakness on the upper lower extremities, or focal neurologic deficits. Past Med Surg Social Fam HX - Past Medical History Medical history: COPD, diabetes, GERD, hyperlipidemia, hypertension Psychiatric history: no psych history - Past Surgical History Surgical History: cholecystectomy - Social History Smoking Status: Never smoker Smokeless Tobacco Status: No Alcohol use: none Drug use: none - Family History Mother History Unknown: Yes Adopted: [place]: Carina Morel Age: 89 Family Member Ethnicity: Non- Living Status: Age at : 89 Hx Family Cardiac Disorders: No Hx Family Respiratory Disorders: Yes (asthma) Hx Family Cancer: No Hx Family GI Disorders: No Hx Family Genitourinary Disorders: No Hx Family Endocrine Disorder: No Hx Family Musculoskeletal Disorders: No Hx Family Neuromuscular Disorders: No Hx Family Neurologic Disorders: No Hx Family HEENT Disorders: No Hx Family Autoimmune Disorders: No Hx Family Reproductive Disorders: No Hx Family Psychosocial Disorders: No Hx Family Medical Disorders: No Father Living Status: Hx Family Cancer: Yes (Lung cancer) Medications and Allergies Aspirin 81 mg PO DAILY 08/24/16 [History] Atorvastatin [Lipitor] 40 mg PO HS 08/24/16 [History] Budesonide/Formoterol 160/4.5 [Symbicort 160/4.5] 2 puff IH BIDR 08/24/16 [ History] Cholecalciferol (Vitamin D3) [Vitamin D] 1,000 unit PO DAILY 08/24/16 [History] Doxepin HCl 10 mg PO HS PRN 08/24/16 [History] Ferrous Sulfate [Iron] 325 mg PO DAILY 08/24/16 [History] Fluticasone Propionate Nasal [Flonase] 1 - 2 spray NS DAILY PRN 08/24/16 [ History] Glimepiride [Amaryl] 4 mg PO BID 08/24/16 [History] Loratadine [Claritin] 10 mg PO DAILY 08/24/16 [History] Losartan/HCTZ [Hyzaar 50-12.5 Tablet] 1 each PO DAILY 08/24/16 [History] Metformin HCl [Metformin HCl ER] 500 mg PO BID 08/24/16 [History] Oxybutynin [Ditropan] 5 mg PO BID 08/24/16 [History] Pantoprazole Sodium [Protonix] 40 mg PO DAILY 08/24/16 [History] Sennosides [Senna] 8.6 - 17.2 mg PO HS PRN 08/24/16 [History] Bimatoprost [Lumigan] 1 drop OP DAILY 09/09/16 [History] Multivitamin [Multi-Day Vitamins] 1 each PO DAILY 09/09/16 [History] Allergies clopidogrel [From Plavix] Allergy (Verified 09/09/16 17:43) Rash codeine Allergy (Verified 09/09/16 17:43) Rash metoclopramide [From Reglan] Allergy (Verified 09/09/16 17:43) Rash Sulfa (Sulfonamide Antibiotics) Allergy (Verified 09/09/16 17:43) Rash acetaminophen [From [place]] Adverse Reaction (Verified 09/09/16 17:43) Confusion hydrocodone [From [place]] Adverse Reaction (Verified 09/09/16 17:43) Confusion lisinopril Adverse Reaction (Verified 09/09/16 17:43) Cough IVP DYE Allergy (Uncoded 08/24/16 12:42) Rash Results - Labs Result Diagrams: 09/10/16 04:18 09/10/16 04:18 Labs: Abnormal lab results Sodium 131 mEq/L (136-145) L 09/10/16 04:18 BUN 22 mg/dL (7-20) H 09/10/16 04:18 BUN/Creatinine Ratio 31 (6-26) H 09/10/16 04:18 Glucose 265 mg/dL (70-99) H 09/10/16 04:18 POC Glucose 227 (58-89) H 09/09/16 19:47 Hemoglobin A1c 10.9 % (-5.6) H 09/09/16 20:08 Total Bilirubin 1.8 mg/dL (0.2-1.2) H 09/09/16 20:08 ALT 65 Units/L (0-55) H 09/09/16 20:08 Serum Total Protein 8.9 g/dL (6.0-8.3) H 09/09/16 20:08 Globulin 5.1 g/dL (2.4-3.5) H 09/09/16 20:08 Albumin/Globulin Ratio 0.7 (1.1-2.2) L 09/09/16 20:08 Urine Clarity Cloudy (Clear) A 09/09/16 19:57 Ur Specific [place] > 1.030 (1.010-1.025) H 09/09/16 19:57 Urine Protein 100 mg/dL (Neg-Trace) H 09/09/16 19:57 Urine Glucose (UA) >=1000 mg/dL (Normal) H 09/09/16 19:57 Urine Ketones Trace mg/dL (Negative) H 09/09/16 19:57 Urine Bilirubin Small (Negative) H 09/09/16 19:57 Urine Microscopic RBC 3-5 per hpf (0-3) H 09/09/16 19:57 Urine Microscopic WBC 5-15 per hpf (0-3) H 09/09/16 19:57 Ur Squamous Epith Cells Many per lpf (None-Few) H 09/09/16 19:57 Ur Culture Indicated? YES (NO) A 09/09/16 19:57 H & H 09/10/16 Range/Units 04:18 Hgb 13.9 D (11.5-15.4) g/dL Hct 40.7 (35.3-44.9) % All other labs normal. Consult Discharge Plan - Plan Referrals: NO,PCP [Non-Partnered Physician] -
--- NOTE | 2016-09-10 12:12 | Discharge Summary ---
Date of Encounter: 09/10/16 Time of Encounter: 12:10 - Discharge Diagnosis (1) Intractable back pain Priority: Primary Status: Acute Comments: Secondary to chronic T12 compression fracture and history of chronic back pain (2) T12 compression fracture Priority: Primary Status: Chronic Qualifiers: Encounter type: initial encounter Fracture type: closed Qualified Code(s) : S22.080A - Wedge compression fracture of T11-T12 vertebra, initial encounter for closed fracture (3) Polycythemia Priority: Secondary Status: Acute Comments: Likely secondary to dehydration as the patient has returned to her normal values Hemoglobin was 16.8 upon admission now is 13.9 which is closer to her baseline from prior measurements (4) Type II diabetes mellitus Priority: Secondary Status: Acute Qualifiers: Diabetes mellitus complication status: without complication 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 Qualified Code(s): E11.9 - Type 2 diabetes mellitus without complications (5) HTN (hypertension) Priority: Secondary Status: Acute Qualifiers: Hypertension type: essential hypertension Qualified Code(s): I10 - Essential (primary) hypertension (6) COPD (chronic obstructive pulmonary disease) Priority: Secondary Status: Acute Qualifiers: COPD type: unspecified COPD Qualified Code(s): J44.9 - Chronic obstructive pulmonary disease, unspecified (7) CAD (coronary artery disease) Priority: Secondary Status: Acute Qualifiers: Associated angina: without angina Qualified Code(s): I25.10 - Atherosclerotic heart disease of [place] coronary artery without angina pectoris - Discharge Medications Prescriptions: OxyCODONE/APAP 5/325 [Percocet 5/325 MG] 1 each PO Q6HR PRN #30 tablet PRN Reason: Pain Home Medications: Aspirin 81 mg PO DAILY 08/24/16 [History] Atorvastatin [Lipitor] 40 mg PO HS 08/24/16 [History] Budesonide/Formoterol 160/4.5 [Symbicort 160/4.5] 2 puff IH BIDR 08/24/16 [ History] Cholecalciferol (Vitamin D3) [Vitamin D3] 1,000 unit PO DAILY 08/24/16 [History] Doxepin HCl 10 mg PO HS PRN 08/24/16 [History] Ferrous Sulfate [Iron] 325 mg PO DAILY 08/24/16 [History] Fluticasone Propionate Nasal [Flonase] 1 - 2 spray NS DAILY PRN 06/20/17 [ History] Glimepiride [Amaryl] 4 mg PO BID 08/24/16 [History] Loratadine [Claritin] 10 mg PO DAILY 08/24/16 [History] Losartan/HCTZ [Hyzaar 50-12.5 Tablet] 1 each PO DAILY 08/24/16 [History] Metformin HCl [Metformin HCl ER] 500 mg PO BID 08/24/16 [History] Oxybutynin [Ditropan] 5 mg PO BID 08/24/16 [History] Pantoprazole Sodium [Protonix] 40 mg PO DAILY 08/24/16 [History] Sennosides [Senna] 8.6 - 17.2 mg PO HS PRN 08/24/16 [History] Bimatoprost [Lumigan] 1 drop OP DAILY 09/09/16 [History] Multivitamin [Multi-Day Vitamins] 1 each PO DAILY 09/09/16 [History] OxyCODONE/APAP 5/325 [Percocet 5/325 MG] 1 each PO Q6HR PRN #30 tablet 09/10/16 [Rx] Allergies/Adverse Reactions: Allergies clopidogrel [From Plavix] Allergy (Verified 09/09/16 17:43) Rash codeine Allergy (Verified 09/09/16 17:43) Rash metoclopramide [From Reglan] Allergy (Verified 09/09/16 17:43) Rash Sulfa (Sulfonamide Antibiotics) Allergy (Verified 09/09/16 17:43) Rash acetaminophen [From [place]] Adverse Reaction (Verified 09/09/16 17:43) Confusion hydrocodone [From [place]] Adverse Reaction (Verified 09/09/16 17:43) Confusion lisinopril Adverse Reaction (Verified 09/09/16 17:43) Cough IVP DYE Allergy (Uncoded 08/24/16 12:42) Rash Date of admission: 09/09/16 22:27 Primary care physician: Inessa Shrestha MD Consults: 09/09/16 23:48 Consult to Culturist [CONS] Routine Reason for SW Consult: Potential need for ECF or HH 09/10/16 02:49 Consult to Orthopedic Surgery [CONS] Routine Consulting Provider: [facility] Reason for Consult: Consult to Dr. Hurst Call Completed: Yes 09/10/16 03:01 Consult to Physical Therapy [CONS] Routine Comment: Evaluate, develop and implement POC Reason for Consult: T12 fracture, limited mobility - Patient Status Disposition: Home, Self-Care Condition: Good Overall status at discharge: patient is progressing back to baseline - Discharge Instructions Follow Up With: NO,PCP [Non-Partnered Physician] - Additional Instructions: Follow-up with primary care physician within the next 7 days. Continue Oxycodone for pain. Can have physical therapy as an outpatient. May follow-up with orthopedic surgery as needed - Diet and Activity Activity: increase activity as tolerated Diet: diabetic diet Hospital course: Ms. Johnson is a 76 year old female with past history of COPD not oxygen dependent, type 2 diabetes not insulin-dependent, GERD, hyperlipidemia, hypertension presented to [facility] with mid back pain. Patient stated that for the past several weeks she felt that she could not really feel what was under her legs. On Tuesday she was walking out of the bathroom and fell backwards landing on her back. Upon hitting the floor she said she had significant pain in her mid back and at its worst scored a 9 out of 10. She could not find any relief with position the pain stayed in her mid back did not radiates down to her legs or up to her shoulders. The pain is exacerbated with activity or sitting up. She denied any numbness in her thighs or loss of bowel or bladder function. She denied any weakness in her lower extremities or upper extremities. She denied any new neurologic findings. Patient denied any fevers, chills, sweating, diaphoresis, nausea vomiting diarrhea constipation chest pain or palpitations. CT scan of the thoracic and lumbar spines reveals multilevel lumbar instrumented fusion without apparent hardware complication. There is a T12 superior endplate fracture of unknown chronicity. MRI of thoracic spine reveals no acute compression fractures Was evaluated by Dr. Alosno recommended no surgical intervention as her fracture is old , recommended analgesics and mobilization as tolerated. - Time Spent with Patient Total time spent providing and/or coordinating discharge services: Greater than 30 minutes (40 min) - Constitutional Vitals: Temp Pulse Resp BP Pulse Ox 97.8 F 64 14 145/75 97 09/10/16 11:51 09/10/16 11:51 09/10/16 11:51 09/10/16 11:51 09/10/16 11:51 General appearance: Present: A&O X 3 - Head Head exam: Present: atraumatic, normocephalic - Eye Eye exam: Present: PERRL, conjuntiva pink, sclera anicteric Pupils: Present: PERRL - Neck Neck exam general surgery: Present: supple, trachea midline. Absent: lymphadenopathy - Respiratory Respiratory exam: Present: CTAB. Absent: accessory muscle use, rales, rhonchi, wheezes - Cardiovascular Cardiovascular exam: Present: RRR, +S1, +S2. Absent: diastolic murmur, gallop, rubs, systolic murmur - GI/Abdominal GI/Abdominal exam: Present: normal bowel sounds, soft, no peritoneal signs. Absent: distended, tenderness - Extremities Exam Extremities exam: Present: warm, radial pulses palpable and symetrical. Absent : calf tenderness, cyanotic, pedal edema - Neurological Exam Neurological exam: Present: CN II-XII intact, oriented X3, no focal deficits. Absent: pronater drift, facial droop, speech deficit - Skin Skin exam: Present: dry, intact
[2016-09-10] MEDS ORDERED: *HR* OxyCODONE/APAP 5/325 TABLET PO SCH (16:00)
--- NOTE | 2016-09-10 17:41 | Electrocardiograph Report ---
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
--- NOTE | 2016-09-10 17:44 | Electrocardiograph Report ---
[place] [id number] Test Date: 2016-09-10 Pat Name: Debbie Johnson Department: 114 Room: [facility] Gender: F [employer]: [id number] : 1940 Requested By: Michael Jeffery Order Number: [id number] Reading MD: Lizeth Mayorga Measurements Intervals [place] Rate: 73 P: 56 SC: 137 QRS: 8 QRSD: 89 T: 81 QT: 374 QTc: 399 Interpretive Statements SINUS RHYTHM LEFT VENTRICULAR HYPERTROPHY AND ST-T CHANGE Electronically Signed On 09-10-2016 17:43:21 EDT by Lizeth Mayorga
[2016-09-10] MEDS ORDERED: Insulin LISPRO 300 UNITS/3 ML VIAL SQ SCH (21:00)
== END 2016-09-10 16:00 | disposition home or self-care (01) ==
LOC: EMEROO 17:30 → 3NENU 17:30
PROVIDERS: ADMIT Internal Medicine; ATTEND Internal Medicine

== ENCOUNTER 2019-12-03 13:13 | Inpatient (IN) ==
[2019-12-03] MEDS ORDERED: 0.9 % Sodium Chloride 1,000 ML IVC ONE (15:03)
[2019-12-03] MEDS ORDERED: Pantoprazole 40 MG VIAL IVP ONE (15:03)
[2019-12-03] MEDS ORDERED: Ondansetron 4 MG/2 ML VIAL IVP ONE (15:03)
[2019-12-03] MEDS ORDERED: Isovue-370 500 ML BOTTLE IVP ONE (15:04)
[2019-12-03 15:30] LABS: Basophils # 0.1 K/mcL (0.0-0.2); Basophils % 0.8 %; Eosinophils # 0.6 K/mcL (0.0-0.6); Eosinophils % 5.6 %; Hematocrit 36.9 % (35.3-44.9); Hemoglobin 12.4 g/dL (11.5-15.4); Immature Granulocytes % 0.4 % (0-4); Lymphocytes # 2.3 K/mcL (0.6-4.6); Lymphocytes % 20.8 %; Mean Corpuscular HGB Conc 33.6 g/dL (31.6-35.5); Mean Corpuscular Hemoglobin 30.6 pg (28.0-33.3); Mean Corpuscular Volume 91.1 fL (83.0-100.0); Mean Platelet Volume 9.1 fL (9.4-12.4); Monocytes % 8.9 %; Platelet Count 384 K/mcL (140-400); Red Blood Count 4.05 M/mcL (3.82-4.97); Red Cell Distribution Width 13.9 % (11.5-14.5); Segmented Neutrophils % 63.5 %
[2019-12-03 15:35] LABS: Activated Partial Thrombo Time 30.9 Seconds (26.0-36.0)
[2019-12-03 15:42] LABS: Alanine Aminotransferase 11 Units/L (7-52); Albumin 3.9 g/dL (3.5-5.7); Albumin/Globulin Ratio 1.4 (1.1-2.2); Alkaline Phosphatase 88 Units/L (34-104); Aspartate Amino Transferase 25 Units/L (13-39); BUN/Creatinine Ratio 15 (6-26); Bilirubin,Total 0.6 mg/dL (0.3-1.0); Blood Urea Nitrogen 10 mg/dL (8-23); Calcium 9.3 mg/dL (8.6-10.3); Carbon Dioxide 31 mEq/L (23-29); Chloride 93 mEq/L (98-107); Globulin 2.7 g/dL (2.4-3.5); Glucose 134 mg/dL (70-105); Lipase 13 Units/L (11-82); Osmolality,Calculated 285 (280-300); Sodium 137 mEq/L (136-145); Total Protein 6.6 g/dL (6.4-8.9); Troponin I 0.03 ng/mL (< 0.04); eGFR For African Americans > 60 (> 60); eGFR For Non-African Americans > 60 (> 60)
[2019-12-03 19:12] LABS: Adenovirus Not Detected (Not Detect); Bordetella Pertussis Not Detected (Not Detect); Chlamydophila pneumoniae Not Detected (Not Detect); Coronavirus 229E Not Detected (Not Detect); Coronavirus HKU1 Not Detected (Not Detect); Coronavirus NL63 Not Detected (Not Detect); Coronavirus OC43 Not Detected (Not Detect); Human Metapneumovirus Not Detected (Not Detect); Human Rhinovirus/Enterovirus Not Detected (Not Detect); Influenza A Subtype 2009 H1 Not Detected (Not Detect); Influenza B Not Detected (Not Detect); Mycoplasma pneumoniae Not Detected (Not Detect); Parainfluenza Virus 1 Not Detected (Not Detect); Parainfluenza Virus 2 Not Detected (Not Detect); Parainfluenza Virus 3 Not Detected (Not Detect); Parainfluenza Virus 4 Not Detected (Not Detect); Respiratory Syncytial Virus Not Detected (Not Detect); SARS-CoV-2 Not Detected (Not Detect)
[2019-12-03] MEDS ORDERED: Naloxone 0.4 MG/ML INJ IVP PRN (20:33)
[2019-12-03] MEDS ORDERED: Ondansetron 4 MG/2 ML VIAL IVP PRN (20:33)
[2019-12-03] MEDS ORDERED: Insulin DETEMIR 100 UNIT/ML X5UNITS SQ PRN (20:35)
[2019-12-03] MEDS ORDERED: (Doxepin Hcl 10 MG) PO PRN (20:35)
[2019-12-03] MEDS ORDERED: Budesonide/Formoterol 160/4.5 1 PUFF INH IH PRN (20:35)
[2019-12-03] MEDS ORDERED: Dextrose Gel 15 GM/37.5 ML TUBE PO PRN ×2 (20:36)
[2019-12-03] MEDS ORDERED: *HR* Dextrose 50 % in Water (Vial) 50 ML VIAL IVP PRN (20:36)
[2019-12-03] MEDS ORDERED: D5% in Water 1,000 ML IVC PRN (20:36)
[2019-12-03 22:18] LABS: Estimated Average Glucose 137 mg/dl
[2019-12-03] MEDS: Insulin LISPRO 300 UNITS/3 ML VIAL SQ SCH ×2 (22:50)
[2019-12-03] MEDS: 0.9 % Sodium Chloride 1,000 ML IVC SCH (22:51)
[2019-12-03] MEDS: Acetaminophen 325 MG TABLET PO PRN (23:50)
[2019-12-04 02:33] LABS: Bilirubin,Urine Negative (Negative); Blood,Urine Negative (Negative); Clarity,Urine Clear (Clear); Color,Urine Light-Yellow (Yellow); Glucose,Urine (UA) Normal (Normal); Ketones,Urine Negative (Negative); Leukocyte Esterase,Urine Negative (Negative); Nitrite,Urine Negative (Negative); PH,Urine 8.5 pH Units (5.0-8.0); Protein,Urine Trace mg/dL (Neg-Trace); Specific Gravity,Urine 1.015 (1.010-1.025); Urobilinogen,Urine Normal (Normal)
[2019-12-04] MEDS: Pantoprazole 40 MG VIAL IVP SCH ×2 (05:07→18:23)
[2019-12-04] MEDS: 0.9 % Sodium Chloride 1,000 ML IVC SCH (05:26)
[2019-12-04 06:30] LABS: Prothrombin Time 11.5 Seconds (9.4-12.1)
[2019-12-04] MEDS: Acetaminophen 325 MG TABLET PO PRN (06:33)
[2019-12-04 06:49] LABS: Alanine Aminotransferase 8 Units/L (7-52); Albumin/Globulin Ratio 1.3 (1.1-2.2); Alkaline Phosphatase 69 Units/L (34-104); Aspartate Amino Transferase 17 Units/L (13-39); BUN/Creatinine Ratio 14 (6-26); Bilirubin,Total 0.6 mg/dL (0.3-1.0); Blood Urea Nitrogen 7 mg/dL (8-23); Calcium 8.2 mg/dL (8.6-10.3); Carbon Dioxide 25 mEq/L (23-29); Chloride 106 mEq/L (98-107); Globulin 2.4 g/dL (2.4-3.5); Glucose 101 mg/dL (70-105); Magnesium 1.3 mg/dL (1.6-2.6); Osmolality,Calculated 282 (280-300); Sodium 137 mEq/L (136-145); Total Protein 5.4 g/dL (6.4-8.9); eGFR For African Americans > 60 (> 60); eGFR For Non-African Americans > 60 (> 60)
[2019-12-04 06:53] LABS: Basophils # 0.1 K/mcL (0.0-0.2); Basophils % 1.1 %; Eosinophils # 0.6 K/mcL (0.0-0.6); Eosinophils % 7.8 %; Hematocrit 29.3 % (35.3-44.9); Immature Granulocytes % 0.1 % (0-4); Lymphocytes # 1.8 K/mcL (0.6-4.6); Lymphocytes % 25.7 %; Mean Corpuscular HGB Conc 32.8 g/dL (31.6-35.5); Mean Corpuscular Hemoglobin 31.2 pg (28.0-33.3); Mean Corpuscular Volume 95.1 fL (83.0-100.0); Mean Platelet Volume 9.2 fL (9.4-12.4); Monocytes # 0.8 K/mcL (0.0-1.3); Monocytes % 10.9 %; Neutrophils # 3.9 K/mcL (1.6-8.9); Platelet Count 307 K/mcL (140-400); Red Blood Count 3.08 M/mcL (3.82-4.97); Red Cell Distribution Width 14.1 % (11.5-14.5); Segmented Neutrophils % 54.4 %; White Blood Count 7.2 K/mcL (4.3-11.1)
[2019-12-04 06:59] LABS: Thyroid Stimulating Hormone 0.711 mcIU/mL (0.340-5.600)
[2019-12-04 07:17] LABS: Hemoglobin 9.6 g/dL (11.5-15.4)
[2019-12-04] MEDS: Insulin LISPRO 300 UNITS/3 ML VIAL SQ SCH ×4 (08:07→21:21)
[2019-12-04] MEDS: *HR* OxyCODONE Immed Rel 5 MG TABLET PO PRN (10:36)
[2019-12-04] MEDS ORDERED: *HR* Midazolam HCl 5 MG/5 ML VIAL IVP ONE ×2 (16:34→17:33)
[2019-12-04] MEDS ORDERED: *HR* FentaNYL (PF) 100 MCG/2 ML VIAL ONE (16:34)
[2019-12-04] MEDS ORDERED: Simethicone 40 MG/0.6 ML MLS IR ONE (17:33)
[2019-12-04] MEDS ORDERED: *HR* FentaNYL (PF) 100 MCG/2 ML VIAL IVP ONE (17:33)
[2019-12-05] MEDS: Acetaminophen 325 MG TABLET PO PRN ×2 (02:55→12:26)
[2019-12-05] MEDS: Pantoprazole 40 MG VIAL IVP SCH ×2 (05:28→16:46)
[2019-12-05] MEDS: Insulin LISPRO 300 UNITS/3 ML VIAL SQ SCH ×4 (07:41→20:59)
[2019-12-05 08:28] LABS: Hematocrit 31.5 % (35.3-44.9); Hemoglobin 10.4 g/dL (11.5-15.4); Mean Corpuscular Hemoglobin 30.9 pg (28.0-33.3); Mean Corpuscular Volume 93.5 fL (83.0-100.0); Mean Platelet Volume 9.1 fL (9.4-12.4); Platelet Count 345 K/mcL (140-400); Red Blood Count 3.37 M/mcL (3.82-4.97); Red Cell Distribution Width 14.1 % (11.5-14.5)
[2019-12-05 08:35] LABS: BUN/Creatinine Ratio 16 (6-26); Blood Urea Nitrogen 8 mg/dL (8-23); Calcium 9.2 mg/dL (8.6-10.3); Carbon Dioxide 23 mEq/L (23-29); Chloride 108 mEq/L (98-107); Glucose 113 mg/dL (70-105); Osmolality,Calculated 287 (280-300); Potassium 3.7 mEq/L (3.5-5.1); Sodium 139 mEq/L (136-145); eGFR For African Americans > 60 (> 60); eGFR For Non-African Americans > 60 (> 60)
[2019-12-05] MEDS: polyethylene glycoL 3350 17 GM POWD.PACK PO SCH (14:09)
[2019-12-05] MEDS: *HR* OxyCODONE Immed Rel 5 MG TABLET PO PRN (20:59)
[2019-12-06] MEDS: Acetaminophen 325 MG TABLET PO PRN (03:37)
[2019-12-06 04:54] LABS: Hematocrit 29.7 % (35.3-44.9); Hemoglobin 9.8 g/dL (11.5-15.4); Mean Corpuscular Hemoglobin 30.7 pg (28.0-33.3); Mean Corpuscular Volume 93.1 fL (83.0-100.0); Mean Platelet Volume 9.1 fL (9.4-12.4); Platelet Count 304 K/mcL (140-400); Red Blood Count 3.19 M/mcL (3.82-4.97); Red Cell Distribution Width 13.8 % (11.5-14.5); White Blood Count 7.2 K/mcL (4.3-11.1)
[2019-12-06 05:12] LABS: BUN/Creatinine Ratio 18 (6-26); Blood Urea Nitrogen 9 mg/dL (8-23); Calcium 8.8 mg/dL (8.6-10.3); Carbon Dioxide 21 mEq/L (23-29); Chloride 107 mEq/L (98-107); Glucose 162 mg/dL (70-105); Magnesium 1.1 mg/dL (1.6-2.6); Osmolality,Calculated 284 (280-300); Potassium 3.9 mEq/L (3.5-5.1); Sodium 136 mEq/L (136-145); eGFR For African Americans > 60 (> 60); eGFR For Non-African Americans > 60 (> 60)
[2019-12-06] MEDS: Pantoprazole 40 MG VIAL IVP SCH (05:51)
[2019-12-06] MEDS: Insulin LISPRO 300 UNITS/3 ML VIAL SQ SCH ×2 (07:33→12:26)
[2019-12-06] MEDS: polyethylene glycoL 3350 17 GM POWD.PACK PO SCH (08:06)
[2019-12-06] MEDS ORDERED: Aspirin 81 MG TAB.CHEW PO SCH (09:00)
[2019-12-06] MEDS ORDERED: Magnesium Oxide 400 MG TABLET PO SCH (09:00)
[2019-12-06 15:28] VITALS: BP 170/74
== END 2019-12-06 16:29 | disposition home or self-care (01) | DRG 378 ==
LOC: 3BNU 13:13 → EMEROOARM 13:13 → SUATTDRO 19:39 → 3BNU 19:42
PROVIDERS: ADMIT Pharmacist; ATTEND Nurse Practitioner Adult Health
PROC: ENDOEBX (2019-12-04 17:30)

== ENCOUNTER 2021-06-17 18:03 | Inpatient (IN) ==
[2021-06-17] MEDS ORDERED: Naloxone 0.4 MG/ML INJ IVP PRN (22:27)
[2021-06-17] MEDS: 0.9 % Sodium Chloride 1,000 ML IVC SCH (23:53)
[2021-06-18] MEDS: Ondansetron 4 MG/2 ML VIAL IVP PRN ×2 (01:06→16:06)
[2021-06-18 02:12] LABS: Basophils # 0.1 K/mcL (0.0-0.2); Basophils % 0.9 %; Eosinophils # 0.3 K/mcL (0.0-0.6); Eosinophils % 2.6 %; Hematocrit 34.3 % (35.3-44.9); Hemoglobin 11.7 g/dL (11.5-15.4); Immature Granulocytes % 0.3 % (0-4); Lymphocytes # 1.9 K/mcL (0.6-4.6); Lymphocytes % 16.7 %; Mean Corpuscular HGB Conc 34.1 g/dL (31.6-35.5); Mean Corpuscular Hemoglobin 29.2 pg (28.0-33.3); Mean Corpuscular Volume 85.5 fL (83.0-100.0); Mean Platelet Volume 9.7 fL (9.4-12.4); Monocytes # 1.3 K/mcL (0.0-1.3); Monocytes % 11.6 %; Neutrophils # 7.8 K/mcL (1.6-8.9); Platelet Count 368 K/mcL (140-400); Red Blood Count 4.01 M/mcL (3.82-4.97); Red Cell Distribution Width 13.9 % (11.5-14.5); Segmented Neutrophils % 67.9 %; White Blood Count 11.5 K/mcL (4.3-11.1)
[2021-06-18 03:04] LABS: Alanine Aminotransferase 8 Units/L (7-52); Albumin 3.5 g/dL (3.5-5.7); Albumin/Globulin Ratio 1.3 (1.1-2.2); Alkaline Phosphatase 81 Units/L (34-104); Aspartate Amino Transferase 22 Units/L (13-39); BUN/Creatinine Ratio 4 (6-26); Bilirubin,Total 0.8 mg/dL (0.3-1.0); Blood Urea Nitrogen 2 mg/dL (8-23); Calcium 9.1 mg/dL (8.6-10.3); Carbon Dioxide 20 mEq/L (23-29); Chloride 100 mEq/L (98-107); Globulin 2.8 g/dL (2.4-3.5); Glucose 136 mg/dL (70-105); Magnesium 1.2 mg/dL (1.6-2.6); Osmolality,Calculated 268 (280-300); Phosphorous 3.2 mg/dL (2.7-4.5); Potassium 3.7 mEq/L (3.5-5.1); Sodium 130 mEq/L (136-145); Total Protein 6.3 g/dL (6.4-8.9); eGFR For African Americans > 60 (> 60); eGFR For Non-African Americans > 60 (> 60)
[2021-06-18] MEDS ORDERED: Dextrose 4 GM Chewable Tablets PO PRN ×2 (03:48)
[2021-06-18] MEDS ORDERED: D5% in Water 1,000 ML IVC PRN (03:48)
[2021-06-18] MEDS: Nystatin SUSP 5 ML UD.LIQ BC SCH ×5 (05:10→20:31)
[2021-06-18] MEDS: Insulin LISPRO 300 UNITS/3 ML VIAL SUBQ SCH ×3 (05:24→17:04)
[2021-06-18] MEDS: Pantoprazole 40 MG VIAL IVP SCH ×2 (06:08→16:06)
[2021-06-18] MEDS ORDERED: Magnesium Sulfate 1 GM/102 ML PIGGYBACK IVPB ONE (07:40)
[2021-06-18] MEDS: *HR* Promethazine 25 MG/ML VIAL IM PRN ×2 (07:54→20:31)
[2021-06-18 09:35] LABS: Lipase 9 Units/L (11-82)
[2021-06-18] MEDS: Sodium Bicarbonate 75 MEQ in 0.45 % Sodium Chloride 1,000 ML IVC SCH ×2 (10:37→20:43)
[2021-06-18] MEDS ORDERED: Lidocaine -MPF 2% 2 ML VIAL ONE (12:27)
[2021-06-18] MEDS ORDERED: *HR* Propofol 200 MG/20 ML VIAL IVP ONE (13:01)
[2021-06-18] MEDS: polyethylene glycoL 3350 17 GM POWD.PACK PO SCH (17:25)
[2021-06-18] MEDS: *HR* Heparin 5,000 UNIT/ML VIAL SQ SCH (17:29)
[2021-06-18 17:42] LABS: BUN/Creatinine Ratio 7 (6-26); Blood Urea Nitrogen 3 mg/dL (8-23); Calcium 8.6 mg/dL (8.6-10.3); Carbon Dioxide 24 mEq/L (23-29); Chloride 99 mEq/L (98-107); Glucose 131 mg/dL (70-105); Magnesium 1.7 mg/dL (1.6-2.6); Osmolality,Calculated 270 (280-300); Potassium 3.3 mEq/L (3.5-5.1); Sodium 131 mEq/L (136-145); eGFR For African Americans > 60 (> 60); eGFR For Non-African Americans > 60 (> 60)
[2021-06-18] MEDS: 0.9 % Sodium Chloride 1,000 ML IVC SCH (19:10)
[2021-06-19] MEDS: Ondansetron 4 MG/2 ML VIAL IVP PRN ×2 (01:54→13:10)
[2021-06-19] MEDS: Insulin LISPRO 300 UNITS/3 ML VIAL SUBQ SCH ×4 (02:17→16:14)
[2021-06-19 04:40] LABS: Basophils # 0.1 K/mcL (0.0-0.2); Basophils % 0.9 %; Eosinophils # 0.3 K/mcL (0.0-0.6); Eosinophils % 2.9 %; Hematocrit 32.7 % (35.3-44.9); Hemoglobin 11.3 g/dL (11.5-15.4); Immature Granulocytes % 0.3 % (0-4); Lymphocytes # 1.6 K/mcL (0.6-4.6); Lymphocytes % 16.8 %; Mean Corpuscular HGB Conc 34.6 g/dL (31.6-35.5); Mean Corpuscular Hemoglobin 29.7 pg (28.0-33.3); Mean Corpuscular Volume 85.8 fL (83.0-100.0); Mean Platelet Volume 9.4 fL (9.4-12.4); Monocytes # 1.2 K/mcL (0.0-1.3); Monocytes % 12.9 %; Neutrophils # 6.2 K/mcL (1.6-8.9); Platelet Count 335 K/mcL (140-400); Red Blood Count 3.81 M/mcL (3.82-4.97); Red Cell Distribution Width 14.3 % (11.5-14.5); Segmented Neutrophils % 66.2 %; White Blood Count 9.4 K/mcL (4.3-11.1)
[2021-06-19 05:01] LABS: BUN/Creatinine Ratio 7 (6-26); Blood Urea Nitrogen 3 mg/dL (8-23); Calcium 8.3 mg/dL (8.6-10.3); Carbon Dioxide 24 mEq/L (23-29); Chloride 96 mEq/L (98-107); Glucose 118 mg/dL (70-105); Magnesium 1.3 mg/dL (1.6-2.6); Osmolality,Calculated 268 (280-300); Phosphorous 3.1 mg/dL (2.7-4.5); Sodium 130 mEq/L (136-145); eGFR For African Americans > 60 (> 60); eGFR For Non-African Americans > 60 (> 60)
[2021-06-19] MEDS: *HR* Heparin 5,000 UNIT/ML VIAL SQ SCH ×2 (05:40→16:04)
[2021-06-19] MEDS: *HR* Promethazine 25 MG/ML VIAL IM PRN ×2 (05:44→21:14)
[2021-06-19 06:31] LABS: Bilirubin,Urine Negative (Negative); Blood,Urine Negative (Negative); Clarity,Urine Clear (Clear); Color,Urine Colorless (Yellow); Glucose,Urine (UA) Normal (Normal); Ketones,Urine 40 mg/dL (Negative); Leukocyte Esterase,Urine Negative (Negative); Mucus,Urine Few per lpf (None-Few); Nitrite,Urine Negative (Negative); Protein,Urine Negative (Neg-Trace); RBC,Urine 0-3 per hpf (0-3); Specific Gravity,Urine 1.009 (1.010-1.025); Squamous Epithelial Cell,Urine Few per hpf (None-Few); Urobilinogen,Urine Normal (Normal)
[2021-06-19] MEDS: Sodium Bicarbonate 75 MEQ in 0.45 % Sodium Chloride 1,000 ML IVC SCH (07:41)
[2021-06-19] MEDS: polyethylene glycoL 3350 17 GM POWD.PACK PO SCH (07:50)
[2021-06-19] MEDS: Nystatin SUSP 5 ML UD.LIQ BC SCH ×4 (08:02→21:08)
[2021-06-19] MEDS: Ampicillin/Sulbactam 3,000 MG in 0.9 % Sodium Chloride Mini Bag 100 ML IVPB SCH ×3 (12:23→23:57)
[2021-06-19] MEDS: FLUoxetine 20 MG CAPSULE PO SCH (12:36)
[2021-06-19] MEDS: Aspirin 81 MG TAB.CHEW PO SCH (12:36)
[2021-06-19] MEDS: Acetaminophen 325 MG TABLET PO PRN (16:05)
[2021-06-19] MEDS: Chloraseptic Spray 177 ML BOTTLE MM PRN (16:08)
[2021-06-19] MEDS: Mirtazapine 15 MG TABLET PO SCH (21:07)
[2021-06-19] MEDS: Pregabalin 75 MG CAPSULE PO SCH (21:08)
[2021-06-20] MEDS: Insulin LISPRO 300 UNITS/3 ML VIAL SUBQ SCH ×5 (00:25→23:40)
[2021-06-20] MEDS: Ampicillin/Sulbactam 3,000 MG in 0.9 % Sodium Chloride Mini Bag 100 ML IVPB SCH ×4 (02:57→23:41)
[2021-06-20] MEDS: Acetaminophen 325 MG TABLET PO PRN (04:26)
[2021-06-20 04:41] LABS: Basophils # 0.1 K/mcL (0.0-0.2); Basophils % 0.8 %; Eosinophils # 0.6 K/mcL (0.0-0.6); Eosinophils % 6.2 %; Hematocrit 30.5 % (35.3-44.9); Hemoglobin 10.6 g/dL (11.5-15.4); Immature Granulocytes % 0.3 % (0-4); Lymphocytes # 1.4 K/mcL (0.6-4.6); Lymphocytes % 14.8 %; Mean Corpuscular HGB Conc 34.8 g/dL (31.6-35.5); Mean Corpuscular Hemoglobin 29.9 pg (28.0-33.3); Mean Corpuscular Volume 85.9 fL (83.0-100.0); Mean Platelet Volume 9.1 fL (9.4-12.4); Monocytes # 1.4 K/mcL (0.0-1.3); Monocytes % 14.5 %; Neutrophils # 6.1 K/mcL (1.6-8.9); Platelet Count 306 K/mcL (140-400); Red Blood Count 3.55 M/mcL (3.82-4.97); Red Cell Distribution Width 14.2 % (11.5-14.5); Segmented Neutrophils % 63.4 %; White Blood Count 9.7 K/mcL (4.3-11.1)
[2021-06-20 04:58] LABS: BUN/Creatinine Ratio 9 (6-26); Blood Urea Nitrogen 4 mg/dL (8-23); Calcium 8.8 mg/dL (8.6-10.3); Carbon Dioxide 26 mEq/L (23-29); Chloride 99 mEq/L (98-107); Glucose 96 mg/dL (70-105); Magnesium 1.3 mg/dL (1.6-2.6); Osmolality,Calculated 271 (280-300); Phosphorous 3.2 mg/dL (2.7-4.5); Potassium 3.3 mEq/L (3.5-5.1); Sodium 132 mEq/L (136-145); eGFR For African Americans > 60 (> 60); eGFR For Non-African Americans > 60 (> 60)
[2021-06-20] MEDS: *HR* Heparin 5,000 UNIT/ML VIAL SQ SCH ×2 (06:28→18:46)
[2021-06-20] MEDS: FLUoxetine 20 MG CAPSULE PO SCH ×2 (08:27→08:41)
[2021-06-20] MEDS: Aspirin 81 MG TAB.CHEW PO SCH ×2 (08:27→08:39)
[2021-06-20] MEDS: Nystatin SUSP 5 ML UD.LIQ BC SCH ×5 (08:28→21:53)
[2021-06-20] MEDS: polyethylene glycoL 3350 17 GM POWD.PACK PO SCH (08:28)
[2021-06-20] MEDS: Pregabalin 75 MG CAPSULE PO SCH ×3 (08:29→21:53)
[2021-06-20 15:21] LABS: ABG Base Excess 0 mEq/L (-2 to 3); ABG HCO3 25 mEq/L (21-27); ABG Oxygen Saturation 95 % (95-98); ABG PCO2 37 mmHg (35-45); ABG PH 7.43 pH Units (7.32-7.45); ABG PO2 71 mmHg (85-104); ABG TCO2 26 mEq/L (20-26)
[2021-06-20] MEDS: 0.9 % Sodium Chloride 1,000 ML IVC SCH (15:35)
[2021-06-20] MEDS: *HR* Promethazine 25 MG/ML VIAL IM PRN (20:31)
[2021-06-20] MEDS: Mirtazapine 15 MG TABLET PO SCH (21:53)
[2021-06-20] MEDS ORDERED: Pantoprazole 40 MG VIAL IVP ONE (23:19)
[2021-06-21 02:10] LABS: Basophils # 0.1 K/mcL (0.0-0.2); Basophils % 0.7 %; Eosinophils # 0.6 K/mcL (0.0-0.6); Hematocrit 29.1 % (35.3-44.9); Immature Granulocytes % 0.3 % (0-4); Lymphocytes # 1.8 K/mcL (0.6-4.6); Lymphocytes % 18.6 %; Mean Corpuscular HGB Conc 34.4 g/dL (31.6-35.5); Mean Corpuscular Hemoglobin 29.8 pg (28.0-33.3); Mean Corpuscular Volume 86.6 fL (83.0-100.0); Mean Platelet Volume 9.7 fL (9.4-12.4); Monocytes # 1.1 K/mcL (0.0-1.3); Monocytes % 11.6 %; Neutrophils # 5.9 K/mcL (1.6-8.9); Platelet Count 341 K/mcL (140-400); Red Blood Count 3.36 M/mcL (3.82-4.97); Red Cell Distribution Width 14.2 % (11.5-14.5); Segmented Neutrophils % 62.8 %; White Blood Count 9.4 K/mcL (4.3-11.1)
[2021-06-21 02:26] LABS: BUN/Creatinine Ratio 11 (6-26); Blood Urea Nitrogen 5 mg/dL (8-23); Calcium 8.2 mg/dL (8.6-10.3); Carbon Dioxide 25 mEq/L (23-29); Chloride 98 mEq/L (98-107); Glucose 152 mg/dL (70-105); Osmolality,Calculated 274 (280-300); Potassium 2.9 mEq/L (3.5-5.1); Sodium 132 mEq/L (136-145); eGFR For African Americans > 60 (> 60); eGFR For Non-African Americans > 60 (> 60)
[2021-06-21] MEDS: Acetaminophen 325 MG TABLET PO PRN (02:55)
[2021-06-21] MEDS: Ondansetron 4 MG/2 ML VIAL IVP PRN ×2 (03:01→18:12)
[2021-06-21] MEDS: 0.9 % Sodium Chloride 1,000 ML IVC SCH (05:01)
[2021-06-21] MEDS: Ampicillin/Sulbactam 3,000 MG in 0.9 % Sodium Chloride Mini Bag 100 ML IVPB SCH ×4 (05:46→23:53)
[2021-06-21] MEDS: *HR* Heparin 5,000 UNIT/ML VIAL SQ SCH ×2 (05:47→18:11)
[2021-06-21] MEDS: Insulin LISPRO 300 UNITS/3 ML VIAL SUBQ SCH ×3 (05:59→17:51)
[2021-06-21] MEDS: Aspirin 81 MG TAB.CHEW PO SCH (08:29)
[2021-06-21] MEDS: Pregabalin 75 MG CAPSULE PO SCH ×2 (08:30→21:27)
[2021-06-21] MEDS: Nystatin SUSP 5 ML UD.LIQ BC SCH ×4 (08:30→21:27)
[2021-06-21] MEDS: FLUoxetine 20 MG CAPSULE PO SCH (08:30)
[2021-06-21] MEDS: polyethylene glycoL 3350 17 GM POWD.PACK PO SCH (08:30)
[2021-06-21] MEDS: Mirtazapine 15 MG TABLET PO SCH (21:27)
[2021-06-22 02:53] LABS: Basophils # 0.1 K/mcL (0.0-0.2); Basophils % 0.9 %; Eosinophils # 0.7 K/mcL (0.0-0.6); Hemoglobin 9.8 g/dL (11.5-15.4); Immature Granulocytes % 0.3 % (0-4); Lymphocytes % 19.9 %; Mean Corpuscular Hemoglobin 30.2 pg (28.0-33.3); Mean Corpuscular Volume 86.4 fL (83.0-100.0); Mean Platelet Volume 9.5 fL (9.4-12.4); Monocytes # 1.1 K/mcL (0.0-1.3); Monocytes % 11.2 %; Platelet Count 330 K/mcL (140-400); Red Blood Count 3.24 M/mcL (3.82-4.97); Red Cell Distribution Width 14.1 % (11.5-14.5); Segmented Neutrophils % 60.7 %; White Blood Count 9.8 K/mcL (4.3-11.1)
[2021-06-22 03:03] LABS: BUN/Creatinine Ratio 11 (6-26); Blood Urea Nitrogen 5 mg/dL (8-23); Calcium 8.1 mg/dL (8.6-10.3); Carbon Dioxide 25 mEq/L (23-29); Chloride 99 mEq/L (98-107); Glucose 203 mg/dL (70-105); Osmolality,Calculated 277 (280-300); Potassium 3.5 mEq/L (3.5-5.1); Sodium 132 mEq/L (136-145); eGFR For African Americans > 60 (> 60); eGFR For Non-African Americans > 60 (> 60)
[2021-06-22] MEDS: Acetaminophen 325 MG TABLET PO PRN (03:08)
[2021-06-22] MEDS: Insulin LISPRO 300 UNITS/3 ML VIAL SUBQ SCH ×5 (05:09→23:47)
[2021-06-22] MEDS: Ampicillin/Sulbactam 3,000 MG in 0.9 % Sodium Chloride Mini Bag 100 ML IVPB SCH ×4 (05:43→23:39)
[2021-06-22] MEDS: *HR* Heparin 5,000 UNIT/ML VIAL SQ SCH ×2 (05:43→17:59)
[2021-06-22] MEDS: FLUoxetine 20 MG CAPSULE PO SCH (08:37)
[2021-06-22] MEDS: Aspirin 81 MG TAB.CHEW PO SCH (08:37)
[2021-06-22] MEDS: Pregabalin 75 MG CAPSULE PO SCH ×2 (08:37→21:13)
[2021-06-22] MEDS: Nystatin SUSP 5 ML UD.LIQ BC SCH ×4 (08:38→21:15)
[2021-06-22] MEDS: polyethylene glycoL 3350 17 GM POWD.PACK PO SCH (08:41)
[2021-06-22 12:46] LABS: Adenovirus Not Detected (Not Detect); Bordetella Pertussis Not Detected (Not Detect); Chlamydophila pneumoniae Not Detected (Not Detect); Coronavirus 229E Not Detected (Not Detect); Coronavirus HKU1 Not Detected (Not Detect); Coronavirus NL63 Not Detected (Not Detect); Coronavirus OC43 Not Detected (Not Detect); Human Metapneumovirus Not Detected (Not Detect); Human Rhinovirus/Enterovirus Not Detected (Not Detect); Influenza A Subtype 2009 H1 Not Detected (Not Detect); Influenza B Not Detected (Not Detect); Mycoplasma pneumoniae Not Detected (Not Detect); Parainfluenza Virus 1 Not Detected (Not Detect); Parainfluenza Virus 2 Not Detected (Not Detect); Parainfluenza Virus 3 Not Detected (Not Detect); Parainfluenza Virus 4 Not Detected (Not Detect); Respiratory Syncytial Virus Not Detected (Not Detect); SARS-CoV-2 Not Detected (Not Detect)
[2021-06-22] MEDS: Mirtazapine 15 MG TABLET PO SCH (21:14)
[2021-06-23] MEDS: Ondansetron 4 MG/2 ML VIAL IVP PRN ×2 (02:50→17:55)
[2021-06-23 04:09] LABS: Basophils # 0.1 K/mcL (0.0-0.2); Basophils % 0.7 %; Eosinophils # 0.5 K/mcL (0.0-0.6); Eosinophils % 4.8 %; Hematocrit 31.6 % (35.3-44.9); Hemoglobin 10.7 g/dL (11.5-15.4); Immature Granulocytes % 0.4 % (0-4); Lymphocytes # 2.3 K/mcL (0.6-4.6); Lymphocytes % 20.4 %; Mean Corpuscular HGB Conc 33.9 g/dL (31.6-35.5); Mean Corpuscular Hemoglobin 29.3 pg (28.0-33.3); Mean Corpuscular Volume 86.6 fL (83.0-100.0); Mean Platelet Volume 9.8 fL (9.4-12.4); Monocytes # 0.8 K/mcL (0.0-1.3); Monocytes % 7.2 %; Neutrophils # 7.4 K/mcL (1.6-8.9); Platelet Count 377 K/mcL (140-400); Red Blood Count 3.65 M/mcL (3.82-4.97); Red Cell Distribution Width 14.2 % (11.5-14.5); Segmented Neutrophils % 66.5 %; White Blood Count 11.2 K/mcL (4.3-11.1)
[2021-06-23 04:27] LABS: BUN/Creatinine Ratio 10 (6-26); Blood Urea Nitrogen 5 mg/dL (8-23); Calcium 8.9 mg/dL (8.6-10.3); Carbon Dioxide 25 mEq/L (23-29); Chloride 97 mEq/L (98-107); Glucose 141 mg/dL (70-105); Osmolality,Calculated 272 (280-300); Potassium 4.1 mEq/L (3.5-5.1); Sodium 131 mEq/L (136-145); eGFR For African Americans > 60 (> 60); eGFR For Non-African Americans > 60 (> 60)
[2021-06-23] MEDS: Ampicillin/Sulbactam 3,000 MG in 0.9 % Sodium Chloride Mini Bag 100 ML IVPB SCH ×3 (06:14→17:56)
[2021-06-23] MEDS: *HR* Heparin 5,000 UNIT/ML VIAL SQ SCH ×2 (06:15→17:55)
[2021-06-23] MEDS: Insulin LISPRO 300 UNITS/3 ML VIAL SUBQ SCH ×3 (06:15→17:57)
[2021-06-23] MEDS: *HR* Promethazine 25 MG/ML VIAL IM PRN (08:43)
[2021-06-23] MEDS: Aspirin 81 MG TAB.CHEW PO SCH (11:48)
[2021-06-23] MEDS: polyethylene glycoL 3350 17 GM POWD.PACK PO SCH (11:49)
[2021-06-23] MEDS: Nystatin SUSP 5 ML UD.LIQ BC SCH ×4 (11:49→20:57)
[2021-06-23] MEDS: FLUoxetine 20 MG CAPSULE PO SCH (11:54)
[2021-06-23] MEDS: Pregabalin 75 MG CAPSULE PO SCH ×2 (11:54→20:57)
[2021-06-23] MEDS: Mirtazapine 15 MG TABLET PO SCH (20:57)
[2021-06-24] MEDS: Insulin LISPRO 300 UNITS/3 ML VIAL SUBQ SCH ×4 (00:10→17:40)
[2021-06-24] MEDS: Ampicillin/Sulbactam 3,000 MG in 0.9 % Sodium Chloride Mini Bag 100 ML IVPB SCH (00:11)
[2021-06-24 05:35] LABS: Basophils # 0.1 K/mcL (0.0-0.2); Basophils % 1.2 %; Eosinophils # 0.5 K/mcL (0.0-0.6); Eosinophils % 4.2 %; Hematocrit 30.3 % (35.3-44.9); Hemoglobin 10.1 g/dL (11.5-15.4); Immature Granulocytes % 0.5 % (0-4); Lymphocytes # 1.9 K/mcL (0.6-4.6); Lymphocytes % 17.3 %; Mean Corpuscular HGB Conc 33.3 g/dL (31.6-35.5); Mean Corpuscular Hemoglobin 29.1 pg (28.0-33.3); Mean Corpuscular Volume 87.3 fL (83.0-100.0); Mean Platelet Volume 9.5 fL (9.4-12.4); Monocytes % 9.1 %; Neutrophils # 7.5 K/mcL (1.6-8.9); Platelet Count 351 K/mcL (140-400); Red Blood Count 3.47 M/mcL (3.82-4.97); Red Cell Distribution Width 14.3 % (11.5-14.5); Segmented Neutrophils % 67.7 %; White Blood Count 11.1 K/mcL (4.3-11.1)
[2021-06-24 06:00] LABS: BUN/Creatinine Ratio 12 (6-26); Blood Urea Nitrogen 8 mg/dL (8-23); Calcium 8.6 mg/dL (8.6-10.3); Carbon Dioxide 26 mEq/L (23-29); Chloride 98 mEq/L (98-107); Glucose 144 mg/dL (70-105); Osmolality,Calculated 275 (280-300); Potassium 3.8 mEq/L (3.5-5.1); Sodium 132 mEq/L (136-145); eGFR For African Americans > 60 (> 60); eGFR For Non-African Americans > 60 (> 60)
[2021-06-24] MEDS: *HR* Heparin 5,000 UNIT/ML VIAL SQ SCH ×2 (06:26→17:40)
[2021-06-24] MEDS: Ondansetron 4 MG/2 ML VIAL IVP PRN (08:07)
[2021-06-24] MEDS: Pregabalin 75 MG CAPSULE PO SCH ×2 (08:11→20:32)
[2021-06-24] MEDS: FLUoxetine 20 MG CAPSULE PO SCH (08:11)
[2021-06-24] MEDS: polyethylene glycoL 3350 17 GM POWD.PACK PO SCH (08:14)
[2021-06-24] MEDS: Aspirin 81 MG TAB.CHEW PO SCH (08:20)
[2021-06-24] MEDS: Nystatin SUSP 5 ML UD.LIQ BC SCH ×4 (08:20→20:31)
[2021-06-24] MEDS: Nystatin POWDER 30 GM BOTTLE TP SCH ×3 (12:09→20:33)
[2021-06-24] MEDS: Acetaminophen 325 MG TABLET PO PRN (12:10)
[2021-06-24] MEDS: Mirtazapine 15 MG TABLET PO SCH (20:32)
[2021-06-25] MEDS: Insulin LISPRO 300 UNITS/3 ML VIAL SUBQ SCH ×4 (00:30→17:52)
[2021-06-25] MEDS: *HR* Promethazine 25 MG/ML VIAL IM PRN (02:05)
[2021-06-25] MEDS: Acetaminophen 325 MG TABLET PO PRN ×2 (02:12→10:53)
[2021-06-25] MEDS: *HR* Heparin 5,000 UNIT/ML VIAL SQ SCH ×2 (05:32→17:51)
[2021-06-25] MEDS: Pregabalin 75 MG CAPSULE PO SCH ×2 (08:19→20:01)
[2021-06-25] MEDS: FLUoxetine 20 MG CAPSULE PO SCH (08:19)
[2021-06-25] MEDS: Aspirin 81 MG TAB.CHEW PO SCH (08:20)
[2021-06-25] MEDS: polyethylene glycoL 3350 17 GM POWD.PACK PO SCH (08:21)
[2021-06-25] MEDS: Nystatin SUSP 5 ML UD.LIQ BC SCH ×4 (08:33→20:01)
[2021-06-25] MEDS: Nystatin POWDER 30 GM BOTTLE TP SCH ×3 (08:37→20:01)
[2021-06-25] MEDS ORDERED: Isovue-370 500 ML BOTTLE IVP ONE (16:07)
[2021-06-25] MEDS ORDERED: predniSONE 20 MG TABLET PO ONE (20:00)
[2021-06-25] MEDS: Mirtazapine 15 MG TABLET PO SCH (20:01)
[2021-06-26] MEDS: Insulin LISPRO 300 UNITS/3 ML VIAL SUBQ SCH ×4 (00:23→17:02)
[2021-06-26] MEDS ORDERED: predniSONE 20 MG TABLET PO ONE ×2 (02:00→08:00)
[2021-06-26 04:18] LABS: Basophils % 0.2 %; Hematocrit 30.2 % (35.3-44.9); Hemoglobin 10.2 g/dL (11.5-15.4); Immature Granulocytes % 0.3 % (0-4); Lymphocytes # 0.4 K/mcL (0.6-4.6); Lymphocytes % 4.5 %; Mean Corpuscular HGB Conc 33.8 g/dL (31.6-35.5); Mean Corpuscular Volume 85.8 fL (83.0-100.0); Mean Platelet Volume 9.4 fL (9.4-12.4); Monocytes # 0.2 K/mcL (0.0-1.3); Monocytes % 1.7 %; Neutrophils # 8.7 K/mcL (1.6-8.9); Platelet Count 410 K/mcL (140-400); Red Blood Count 3.52 M/mcL (3.82-4.97); Segmented Neutrophils % 93.3 %; White Blood Count 9.4 K/mcL (4.3-11.1)
[2021-06-26 04:37] LABS: BUN/Creatinine Ratio 13 (6-26); Blood Urea Nitrogen 8 mg/dL (8-23); Calcium 8.7 mg/dL (8.6-10.3); Carbon Dioxide 24 mEq/L (23-29); Chloride 96 mEq/L (98-107); Glucose 325 mg/dL (70-105); Osmolality,Calculated 279 (280-300); Potassium 4.3 mEq/L (3.5-5.1); Sodium 129 mEq/L (136-145); eGFR For African Americans > 60 (> 60); eGFR For Non-African Americans > 60 (> 60)
[2021-06-26] MEDS: *HR* Heparin 5,000 UNIT/ML VIAL SQ SCH ×2 (05:45→17:01)
[2021-06-26] MEDS: Aspirin 81 MG TAB.CHEW PO SCH (08:01)
[2021-06-26] MEDS: polyethylene glycoL 3350 17 GM POWD.PACK PO SCH (08:02)
[2021-06-26] MEDS: Nystatin SUSP 5 ML UD.LIQ BC SCH ×4 (08:03→21:01)
[2021-06-26] MEDS: FLUoxetine 20 MG CAPSULE PO SCH (10:39)
[2021-06-26] MEDS: Pregabalin 75 MG CAPSULE PO SCH ×2 (10:39→20:58)
[2021-06-26] MEDS: Nystatin POWDER 30 GM BOTTLE TP SCH ×3 (11:59→21:00)
[2021-06-26] MEDS ORDERED: Gadolinium Contrast Agent (WT Based) IV PRN (17:32)
[2021-06-26] MEDS ORDERED: GADOBUTROL 30 MMOL/30 ML VIAL IVP ONE (18:45)
[2021-06-26] MEDS: Mirtazapine 15 MG TABLET PO SCH (20:57)
[2021-06-27] MEDS: Insulin DETEMIR 100 UNIT/ML X5UNITS SUBQ SCH ×2 (02:19→20:24)
[2021-06-27] MEDS: *HR* Heparin 5,000 UNIT/ML VIAL SQ SCH ×2 (05:41→17:03)
[2021-06-27] MEDS ORDERED: Insulin LISPRO 300 UNITS/3 ML VIAL SUBQ SCH (07:30)
[2021-06-27] MEDS: Insulin LISPRO 300 UNITS/3 ML VIAL SUBQ SCH ×3 (07:54→17:03)
[2021-06-27] MEDS: Nystatin SUSP 5 ML UD.LIQ BC SCH ×4 (07:56→20:24)
[2021-06-27] MEDS: FLUoxetine 20 MG CAPSULE PO SCH (07:57)
[2021-06-27] MEDS: Pregabalin 75 MG CAPSULE PO SCH ×2 (07:58→20:23)
[2021-06-27] MEDS: polyethylene glycoL 3350 17 GM POWD.PACK PO SCH (07:58)
[2021-06-27] MEDS: Piperacillin/Tazobactam 3.375 GM in 0.9 % Sodium Chloride Mini Bag 100 ML IVPB SCH ×2 (08:03→14:30)
[2021-06-27] MEDS: Nystatin POWDER 30 GM BOTTLE TP SCH ×3 (08:09→20:28)
[2021-06-27] MEDS: Aspirin 81 MG TAB.CHEW PO SCH (08:13)
[2021-06-27] MEDS: Chloraseptic Spray 177 ML BOTTLE MM PRN (17:04)
[2021-06-27] MEDS: Mirtazapine 15 MG TABLET PO SCH (20:24)
[2021-06-28] MEDS: Piperacillin/Tazobactam 3.375 GM in 0.9 % Sodium Chloride Mini Bag 100 ML IVPB SCH ×3 (00:25→15:50)
[2021-06-28] MEDS: Menthol 1 EACH LOZENGE PO PRN ×4 (00:37→23:57)
[2021-06-28] MEDS: *HR* Heparin 5,000 UNIT/ML VIAL SQ SCH ×2 (04:53→17:11)
[2021-06-28 05:17] LABS: Hematocrit 24.8 % (35.3-44.9); Mean Corpuscular HGB Conc 33.5 g/dL (31.6-35.5); Mean Corpuscular Hemoglobin 28.9 pg (28.0-33.3); Mean Corpuscular Volume 86.4 fL (83.0-100.0); Mean Platelet Volume 9.1 fL (9.4-12.4); Platelet Count 444 K/mcL (140-400); Red Blood Count 2.87 M/mcL (3.82-4.97); Red Cell Distribution Width 14.2 % (11.5-14.5); White Blood Count 10.6 K/mcL (4.3-11.1)
[2021-06-28 05:18] LABS: Hemoglobin 8.3 g/dL (11.5-15.4)
[2021-06-28 05:30] LABS: BUN/Creatinine Ratio 26 (6-26); Blood Urea Nitrogen 18 mg/dL (8-23); Calcium 8.4 mg/dL (8.6-10.3); Carbon Dioxide 26 mEq/L (23-29); Chloride 107 mEq/L (98-107); Glucose 159 mg/dL (70-105); Osmolality,Calculated 293 (280-300); Potassium 3.9 mEq/L (3.5-5.1); Sodium 139 mEq/L (136-145); eGFR For African Americans > 60 (> 60); eGFR For Non-African Americans > 60 (> 60)
[2021-06-28] MEDS: Insulin LISPRO 300 UNITS/3 ML VIAL SUBQ SCH ×3 (08:10→17:11)
[2021-06-28] MEDS: Pregabalin 75 MG CAPSULE PO SCH ×2 (09:36→20:17)
[2021-06-28] MEDS: Nystatin SUSP 5 ML UD.LIQ BC SCH ×4 (09:36→20:20)
[2021-06-28] MEDS: Aspirin 81 MG TAB.CHEW PO SCH (09:37)
[2021-06-28] MEDS: FLUoxetine 20 MG CAPSULE PO SCH (09:37)
[2021-06-28] MEDS: polyethylene glycoL 3350 17 GM POWD.PACK PO SCH (09:38)
[2021-06-28] MEDS: Nystatin POWDER 30 GM BOTTLE TP SCH ×3 (09:38→20:21)
[2021-06-28] MEDS: Mirtazapine 15 MG TABLET PO SCH (20:18)
[2021-06-28] MEDS: Insulin DETEMIR 100 UNIT/ML X5UNITS SUBQ SCH (20:20)
[2021-06-28] MEDS: Chloraseptic Spray 177 ML BOTTLE MM PRN (23:56)
[2021-06-29] MEDS: Piperacillin/Tazobactam 3.375 GM in 0.9 % Sodium Chloride Mini Bag 100 ML IVPB SCH ×3 (00:08→16:50)
[2021-06-29] MEDS: *HR* Heparin 5,000 UNIT/ML VIAL SQ SCH ×2 (05:11→16:50)
[2021-06-29 07:00] LABS: Hematocrit 27.8 % (35.3-44.9); Hemoglobin 9.1 g/dL (11.5-15.4); Mean Corpuscular HGB Conc 32.7 g/dL (31.6-35.5); Mean Corpuscular Hemoglobin 28.5 pg (28.0-33.3); Mean Corpuscular Volume 87.1 fL (83.0-100.0); Mean Platelet Volume 9.2 fL (9.4-12.4); Platelet Count 464 K/mcL (140-400); Red Blood Count 3.19 M/mcL (3.82-4.97); Red Cell Distribution Width 14.4 % (11.5-14.5); White Blood Count 8.3 K/mcL (4.3-11.1)
[2021-06-29 07:16] LABS: BUN/Creatinine Ratio 16 (6-26); Blood Urea Nitrogen 10 mg/dL (8-23); Calcium 8.6 mg/dL (8.6-10.3); Carbon Dioxide 23 mEq/L (23-29); Chloride 103 mEq/L (98-107); Glucose 145 mg/dL (70-105); Osmolality,Calculated 280 (280-300); Potassium 4.2 mEq/L (3.5-5.1); Sodium 134 mEq/L (136-145); eGFR For African Americans > 60 (> 60); eGFR For Non-African Americans > 60 (> 60)
[2021-06-29] MEDS: Insulin LISPRO 300 UNITS/3 ML VIAL SUBQ SCH ×3 (07:35→16:51)
[2021-06-29] MEDS: Ondansetron 4 MG/2 ML VIAL IVP PRN (08:29)
[2021-06-29] MEDS: Nystatin SUSP 5 ML UD.LIQ BC SCH ×4 (08:34→20:02)
[2021-06-29] MEDS: FLUoxetine 20 MG CAPSULE PO SCH (08:34)
[2021-06-29] MEDS: polyethylene glycoL 3350 17 GM POWD.PACK PO SCH (08:35)
[2021-06-29] MEDS: Aspirin 81 MG TAB.CHEW PO SCH (08:35)
[2021-06-29] MEDS: Pregabalin 75 MG CAPSULE PO SCH ×2 (08:35→20:01)
[2021-06-29] MEDS: Nystatin POWDER 30 GM BOTTLE TP SCH ×3 (08:39→20:02)
[2021-06-29 15:17] LABS: Bilirubin,Urine Negative (Negative); Blood,Urine Negative (Negative); Clarity,Urine Clear (Clear); Color,Urine Colorless (Yellow); Glucose,Urine (UA) Normal (Normal); Ketones,Urine Negative (Negative); Leukocyte Esterase,Urine Negative (Negative); Nitrite,Urine Negative (Negative); Protein,Urine Negative (Neg-Trace); Specific Gravity,Urine 1.006 (1.010-1.025); Urobilinogen,Urine Normal (Normal)
[2021-06-29] MEDS: Mirtazapine 15 MG TABLET PO SCH (20:01)
[2021-06-29] MEDS: Insulin DETEMIR 100 UNIT/ML X5UNITS SUBQ SCH (20:03)
[2021-06-30 02:13] LABS: Hemoglobin 10.3 g/dL (11.5-15.4); Mean Corpuscular HGB Conc 33.2 g/dL (31.6-35.5); Mean Corpuscular Hemoglobin 28.9 pg (28.0-33.3); Mean Corpuscular Volume 86.8 fL (83.0-100.0); Mean Platelet Volume 9.1 fL (9.4-12.4); Platelet Count 521 K/mcL (140-400); Red Blood Count 3.57 M/mcL (3.82-4.97); Red Cell Distribution Width 14.4 % (11.5-14.5); White Blood Count 7.5 K/mcL (4.3-11.1)
[2021-06-30] MEDS: Piperacillin/Tazobactam 3.375 GM in 0.9 % Sodium Chloride Mini Bag 100 ML IVPB SCH ×4 (02:18→23:03)
[2021-06-30 02:23] LABS: BUN/Creatinine Ratio 13 (6-26); Blood Urea Nitrogen 8 mg/dL (8-23); Carbon Dioxide 25 mEq/L (23-29); Chloride 103 mEq/L (98-107); Glucose 77 mg/dL (70-105); Osmolality,Calculated 279 (280-300); Potassium 4.2 mEq/L (3.5-5.1); Sodium 136 mEq/L (136-145); Vancomycin,Trough 9 mcg/mL (5-10); eGFR For African Americans > 60 (> 60); eGFR For Non-African Americans > 60 (> 60)
[2021-06-30] MEDS: *HR* Heparin 5,000 UNIT/ML VIAL SQ SCH ×2 (05:48→20:29)
[2021-06-30] MEDS: *HR* Dextrose 50 % in Water (Syg) 50 ML SYRINGE IVP PRN (06:56)
[2021-06-30] MEDS: Insulin LISPRO 300 UNITS/3 ML VIAL SUBQ SCH ×3 (07:25→20:28)
[2021-06-30] MEDS: Aspirin 81 MG TAB.CHEW PO SCH (08:16)
[2021-06-30] MEDS: FLUoxetine 20 MG CAPSULE PO SCH (08:16)
[2021-06-30] MEDS: Pregabalin 75 MG CAPSULE PO SCH ×2 (08:16→21:06)
[2021-06-30] MEDS: polyethylene glycoL 3350 17 GM POWD.PACK PO SCH (08:18)
[2021-06-30] MEDS: Nystatin SUSP 5 ML UD.LIQ BC SCH (08:18)
[2021-06-30] MEDS: Nystatin POWDER 30 GM BOTTLE TP SCH ×3 (08:18→21:07)
[2021-06-30] MEDS ORDERED: D5% in Lactated Ringers 500 ML IV SOLUTION IVC ONE (15:22)
[2021-06-30] MEDS ORDERED: *HR* Propofol 200 MG/20 ML VIAL IVP ONE (15:56)
[2021-06-30] MEDS ORDERED: *HR* FentaNYL (PF) 100 MCG/2 ML VIAL ONE (15:56)
[2021-06-30] MEDS ORDERED: Ondansetron 4 MG/2 ML VIAL ONE (15:57)
[2021-06-30] MEDS ORDERED: Lidocaine -MPF 2% 2 ML VIAL ONE (15:57)
[2021-06-30] MEDS ORDERED: *HR* Dextrose 50 % in Water (Vial) 50 ML VIAL ONE (16:09)
[2021-06-30] MEDS ORDERED: D5% in Lactated Ringers 1,000 ML IVC SCH (16:30)
[2021-06-30] MEDS ORDERED: Lidocaine/EPI 1:100k 1% 30 ML VIAL ONE (16:48)
[2021-06-30] MEDS ORDERED: *HR* Metoprolol 5 MG/5 ML VIAL IVP PRN (18:09)
[2021-06-30] MEDS ORDERED: Ringers Solution, Lactated 1,000 ML IVC SCH (18:15)
[2021-06-30] MEDS ORDERED: Morphine Sulfate 2 MG/ML SYRINGE IVP PRN (19:17)
[2021-06-30] MEDS ORDERED: Acetaminophen IV 1,000 MG/100 ML BAG IVPB PRN (19:17)
[2021-06-30] MEDS ORDERED: Ketorolac 30 MG/ML VIAL IVP PRN (19:17)
[2021-06-30] MEDS ORDERED: Lidocaine -MPF 4% 5 ML AMPUL ONE (19:22)
[2021-06-30] MEDS: Mirtazapine 15 MG TABLET PO SCH (21:07)
[2021-06-30] MEDS: Insulin DETEMIR 100 UNIT/ML X5UNITS SUBQ SCH (21:07)
[2021-07-01] MEDS: Acetaminophen 325 MG TABLET PO PRN (02:52)
[2021-07-01] MEDS: Ondansetron 4 MG/2 ML VIAL IVP PRN (02:53)
[2021-07-01] MEDS ORDERED: *HR* HYDROmorphone (PF) 1 MG/ML SYRINGE IVP ONE (03:19)
[2021-07-01] MEDS: *HR* Heparin 5,000 UNIT/ML VIAL SQ SCH ×2 (05:03→18:11)
[2021-07-01] MEDS: Insulin LISPRO 300 UNITS/3 ML VIAL SUBQ SCH ×3 (09:09→18:11)
[2021-07-01] MEDS: polyethylene glycoL 3350 17 GM POWD.PACK PO SCH (09:10)
[2021-07-01] MEDS: Piperacillin/Tazobactam 3.375 GM in 0.9 % Sodium Chloride Mini Bag 100 ML IVPB SCH (09:11)
[2021-07-01] MEDS: FLUoxetine 20 MG CAPSULE PO SCH (09:13)
[2021-07-01] MEDS: Pregabalin 75 MG CAPSULE PO SCH ×2 (09:14→20:00)
[2021-07-01] MEDS: Aspirin 81 MG TAB.CHEW PO SCH (09:15)
[2021-07-01] MEDS: Nystatin POWDER 30 GM BOTTLE TP SCH ×3 (09:16→20:00)
[2021-07-01] MEDS: *HR* OxyCODONE Immed Rel 5 MG TABLET PO PRN (09:23)
[2021-07-01] MEDS: *HR* HYDROmorphone (PF) 1 MG/ML SYRINGE IVP PRN ×3 (11:30→20:00)
[2021-07-01 17:58] LABS: Hematocrit 26.8 % (35.3-44.9)
[2021-07-01] MEDS: Cefepime HCl 1,000 MG in 0.9 % Sodium Chloride 10 ML IVP SCH (18:10)
[2021-07-01] MEDS: Mirtazapine 15 MG TABLET PO SCH (19:59)
[2021-07-01] MEDS: Insulin DETEMIR 100 UNIT/ML X5UNITS SUBQ SCH (20:05)
[2021-07-02] MEDS: *HR* HYDROmorphone (PF) 1 MG/ML SYRINGE IVP PRN ×2 (03:07→07:35)
[2021-07-02 03:47] LABS: Basophils % 0.4 %; Eosinophils # 0.4 K/mcL (0.0-0.6); Eosinophils % 3.8 %; Hematocrit 27.4 % (35.3-44.9); Immature Granulocytes % 0.6 % (0-4); Lymphocytes # 2.1 K/mcL (0.6-4.6); Mean Corpuscular HGB Conc 32.8 g/dL (31.6-35.5); Mean Corpuscular Hemoglobin 29.2 pg (28.0-33.3); Monocytes # 0.8 K/mcL (0.0-1.3); Monocytes % 8.3 %; Neutrophils # 6.7 K/mcL (1.6-8.9); Platelet Count 566 K/mcL (140-400); Red Blood Count 3.08 M/mcL (3.82-4.97); Red Cell Distribution Width 14.6 % (11.5-14.5); Segmented Neutrophils % 65.9 %; White Blood Count 10.1 K/mcL (4.3-11.1)
[2021-07-02 03:58] LABS: BUN/Creatinine Ratio 15 (6-26); Blood Urea Nitrogen 12 mg/dL (8-23); Carbon Dioxide 25 mEq/L (23-29); Chloride 99 mEq/L (98-107); Glucose 203 mg/dL (70-105); Osmolality,Calculated 278 (280-300); Potassium 4.6 mEq/L (3.5-5.1); Sodium 131 mEq/L (136-145); eGFR For African Americans > 60 (> 60); eGFR For Non-African Americans > 60 (> 60)
[2021-07-02] MEDS: *HR* Heparin 5,000 UNIT/ML VIAL SQ SCH ×2 (05:02→19:40)
[2021-07-02] MEDS: *HR* OxyCODONE Immed Rel 5 MG TABLET PO PRN (05:28)
[2021-07-02] MEDS: polyethylene glycoL 3350 17 GM POWD.PACK PO SCH (07:42)
[2021-07-02] MEDS: FLUoxetine 20 MG CAPSULE PO SCH (07:43)
[2021-07-02] MEDS: Pregabalin 75 MG CAPSULE PO SCH ×2 (07:43→22:13)
[2021-07-02] MEDS: Aspirin 81 MG TAB.CHEW PO SCH (07:46)
[2021-07-02] MEDS: Insulin LISPRO 300 UNITS/3 ML VIAL SUBQ SCH ×3 (07:51→19:41)
[2021-07-02] MEDS: Nystatin POWDER 30 GM BOTTLE TP SCH ×3 (07:55→22:13)
[2021-07-02] MEDS ORDERED: *HR* OxyCODONE Immed Rel 5 MG TABLET PO PRN ×2 (09:24→13:51)
[2021-07-02] MEDS: Ketorolac 30 MG/ML VIAL IVP PRN (09:33)
[2021-07-02] MEDS: Acetaminophen 325 MG TABLET PO PRN (09:34)
[2021-07-02] MEDS: *HR* Promethazine 25 MG/ML VIAL IM PRN (14:37)
[2021-07-02] MEDS: Cefepime HCl 1,000 MG in 0.9 % Sodium Chloride 10 ML IVP SCH (19:39)
[2021-07-02] MEDS: Insulin DETEMIR 100 UNIT/ML X5UNITS SUBQ SCH (21:51)
[2021-07-02] MEDS: Ondansetron 4 MG/2 ML VIAL IVP PRN (22:04)
[2021-07-02] MEDS: Mirtazapine 15 MG TABLET PO SCH (22:13)
[2021-07-03] MEDS: Ketorolac 30 MG/ML VIAL IVP PRN ×2 (04:22→18:26)
[2021-07-03] MEDS: *HR* Heparin 5,000 UNIT/ML VIAL SQ SCH ×2 (05:34→17:39)
[2021-07-03] MEDS: Ondansetron 4 MG/2 ML VIAL IVP PRN ×2 (09:20→17:40)
[2021-07-03] MEDS: Nystatin POWDER 30 GM BOTTLE TP SCH ×3 (09:23→20:47)
[2021-07-03] MEDS: Insulin LISPRO 300 UNITS/3 ML VIAL SUBQ SCH ×2 (09:23→12:36)
[2021-07-03] MEDS ORDERED: 0.9 % Sodium Chloride 1,000 ML IVC SCH (10:00)
[2021-07-03] MEDS: polyethylene glycoL 3350 17 GM POWD.PACK PO SCH (10:34)
[2021-07-03] MEDS: FLUoxetine 20 MG CAPSULE PO SCH (10:34)
[2021-07-03] MEDS: Pregabalin 75 MG CAPSULE PO SCH ×2 (10:34→20:43)
[2021-07-03] MEDS: Aspirin 81 MG TAB.CHEW PO SCH (10:34)
[2021-07-03] MEDS: *HR* Dextrose 50 % in Water (Syg) 50 ML SYRINGE IVP PRN (11:57)
[2021-07-03] MEDS: D5% in 0.9% NACL 1,000 ML IVC SCH (15:41)
[2021-07-03] MEDS: Cefepime HCl 1,000 MG in 0.9 % Sodium Chloride 10 ML IVP SCH (17:39)
[2021-07-03] MEDS: Mirtazapine 15 MG TABLET PO SCH (20:43)
[2021-07-04] MEDS: Insulin LISPRO 300 UNITS/3 ML VIAL SUBQ SCH ×3 (00:51→11:39)
[2021-07-04] MEDS: Ondansetron 4 MG/2 ML VIAL IVP PRN (01:50)
[2021-07-04] MEDS: Magic Mouthwash 10 ML UD Cup PO SCH ×3 (02:17→11:14)
[2021-07-04] MEDS: Ketorolac 30 MG/ML VIAL IVP PRN ×2 (02:52→11:09)
[2021-07-04] MEDS: *HR* Heparin 5,000 UNIT/ML VIAL SQ SCH (06:05)
[2021-07-04] MEDS: Aspirin 81 MG TAB.CHEW PO SCH (07:29)
[2021-07-04] MEDS: Nystatin POWDER 30 GM BOTTLE TP SCH ×2 (07:29→14:44)
[2021-07-04] MEDS: polyethylene glycoL 3350 17 GM POWD.PACK PO SCH ×2 (07:29→07:39)
[2021-07-04] MEDS: FLUoxetine 20 MG CAPSULE PO SCH (07:30)
[2021-07-04 08:46] LABS: Basophils # 0.1 K/mcL (0.0-0.2); Basophils % 0.5 %; Eosinophils # 0.6 K/mcL (0.0-0.6); Eosinophils % 5.9 %; Hemoglobin 8.2 g/dL (11.5-15.4); Immature Granulocytes % 0.5 % (0-4); Lymphocytes # 1.5 K/mcL (0.6-4.6); Lymphocytes % 14.3 %; Mean Corpuscular HGB Conc 32.8 g/dL (31.6-35.5); Mean Corpuscular Hemoglobin 28.6 pg (28.0-33.3); Mean Corpuscular Volume 87.1 fL (83.0-100.0); Mean Platelet Volume 8.8 fL (9.4-12.4); Monocytes # 0.9 K/mcL (0.0-1.3); Monocytes % 8.8 %; Neutrophils # 7.4 K/mcL (1.6-8.9); Platelet Count 413 K/mcL (140-400); Red Blood Count 2.87 M/mcL (3.82-4.97); Red Cell Distribution Width 14.6 % (11.5-14.5); White Blood Count 10.5 K/mcL (4.3-11.1)
[2021-07-04 09:04] LABS: Alanine Aminotransferase 5 Units/L (7-52); Albumin 2.5 g/dL (3.5-5.7); Alkaline Phosphatase 64 Units/L (34-104); Aspartate Amino Transferase 9 Units/L (13-39); BUN/Creatinine Ratio 15 (6-26); Bilirubin,Total 0.5 mg/dL (0.3-1.0); Blood Urea Nitrogen 11 mg/dL (8-23); Calcium 7.8 mg/dL (8.6-10.3); Carbon Dioxide 19 mEq/L (23-29); Chloride 107 mEq/L (98-107); Globulin 2.5 g/dL (2.4-3.5); Glucose 145 mg/dL (70-105); Osmolality,Calculated 274 (280-300); Potassium 4.3 mEq/L (3.5-5.1); Sodium 131 mEq/L (136-145); eGFR For African Americans > 60 (> 60); eGFR For Non-African Americans > 60 (> 60)
[2021-07-04 10:30] VITALS: PULSE 74
[2021-07-04] MEDS: D5% in 0.9% NACL 1,000 ML IVC SCH (11:14)
[2021-07-04 14:39] VITALS: BP 164/75; TEMP 97.7; O2SAT 99
[2021-07-04 15:43] LABS: Influenza A PCR Negative (Negative); Influenza B PCR Negative (Negative); Resp. Syncytial Virus PCR Negative (Negative)
[2021-07-04 15:44] LABS: SARS-CoV-2 by PCR (In House) Negative (Negative)
== END 2021-07-04 17:06 | DRG 981 ==
LOC: 3BNU → SUATTDRO 22:30
PROVIDERS: ADMIT Nurse Practitioner; ATTEND Registered Nurse
PROC: ENDOEBX (2021-06-18 13:00)